=== PATIENT | female | born 1940 | race Hispanic/Latino ===

== ENCOUNTER → 2023-08-26 15:36 | Outpatient (REF) | payer OTHER, SELFPAY | LOC: WDC 15:36 | PROVIDERS: ATTENDING PHYSICIAN Internal Medicine Hematology & Oncology; FAMILY PHYSICIAN Nurse Practitioner Family | DX: Z12.31 Encounter for screening mammogram for malignant neoplasm of breast (principal); C50.311 Malignant neoplasm of lower-inner quadrant of right female breast | CPT/HCPCS: 77063; 77067 ==

== ENCOUNTER → 2023-12-03 16:21 | Outpatient (REF) | payer OTHER, SELFPAY | LOC: RAD 16:21 | PROVIDERS: ATTENDING PHYSICIAN Internal Medicine Endocrinology, Diabetes & Metabolism; FAMILY PHYSICIAN Nurse Practitioner Family | DX: E04.2 Nontoxic multinodular goiter (principal) | CPT/HCPCS: 76536 ==

== ENCOUNTER 2023-12-05 07:09 | Outpatient (RCR) | payer OTHER, SELFPAY | END 2023-12-05 23:59 | disposition home or self-care (01) | LOC: RPT 07:09 | PROVIDERS: ATTENDING PHYSICIAN Nurse Practitioner Adult Health; FAMILY PHYSICIAN Nurse Practitioner Family | DX: F03.B0 Unspecified dementia, moderate, without behavioral disturbance, psychotic disturbance, mood disturbance, and anxiety (principal); Z73.6 Limitation of activities due to disability; R26.2 Difficulty in walking, not elsewhere classified; R53.83 Other fatigue | CPT/HCPCS: 97163; 97530 ==

== ENCOUNTER 2024-01-07 14:59 | Outpatient (RCR) | payer OTHER, SELFPAY | END 2024-01-07 23:59 | disposition home or self-care (01) | LOC: RPT 14:59 | PROVIDERS: ATTENDING PHYSICIAN Nurse Practitioner Adult Health; FAMILY PHYSICIAN Nurse Practitioner Family | DX: F03.B0 Unspecified dementia, moderate, without behavioral disturbance, psychotic disturbance, mood disturbance, and anxiety (principal); Z73.6 Limitation of activities due to disability; R26.2 Difficulty in walking, not elsewhere classified; R26.89 Other abnormalities of gait and mobility | CPT/HCPCS: 97110; 97112; 97116; 97530 ==

== ENCOUNTER 2024-02-07 13:08 | Outpatient (RCR) | payer OTHER, SELFPAY | END 2024-02-07 23:59 | disposition home or self-care (01) | LOC: RPT 13:08 | PROVIDERS: ATTENDING PHYSICIAN Nurse Practitioner Adult Health; FAMILY PHYSICIAN Nurse Practitioner Family | DX: F03.B0 Unspecified dementia, moderate, without behavioral disturbance, psychotic disturbance, mood disturbance, and anxiety (principal); Z73.6 Limitation of activities due to disability; R26.2 Difficulty in walking, not elsewhere classified; R53.83 Other fatigue | CPT/HCPCS: 97110; 97112; 97116; 97530 ==

== ENCOUNTER 2024-02-28 12:15 | Outpatient (RCR) | payer OTHER, SELFPAY | END 2024-02-28 23:59 | disposition home or self-care (01) | LOC: RPT 12:15 | PROVIDERS: ATTENDING PHYSICIAN Nurse Practitioner Adult Health; FAMILY PHYSICIAN Nurse Practitioner Family | DX: F03.B0 Unspecified dementia, moderate, without behavioral disturbance, psychotic disturbance, mood disturbance, and anxiety (principal); Z73.6 Limitation of activities due to disability; R26.2 Difficulty in walking, not elsewhere classified; R53.83 Other fatigue | CPT/HCPCS: 97110; 97112; 97116; 97530 ==

== ENCOUNTER → 2024-03-26 14:19 | Outpatient (REF) | payer OTHER, SELFPAY | LOC: RAD 14:19 | PROVIDERS: ATTENDING PHYSICIAN Nurse Practitioner Adult Health; FAMILY PHYSICIAN Nurse Practitioner Family; OTHER PHYSICIAN Internal Medicine Hematology & Oncology | DX: M81.0 Age-related osteoporosis without current pathological fracture (principal) | CPT/HCPCS: 77080 ==

== ENCOUNTER 2024-04-06 15:11 | Outpatient (RCR) | payer OTHER, SELFPAY | END 2024-04-06 23:59 | disposition home or self-care (01) | LOC: RPT 15:11 | PROVIDERS: ATTENDING PHYSICIAN Nurse Practitioner Adult Health; FAMILY PHYSICIAN Nurse Practitioner Family | DX: F03.B0 Unspecified dementia, moderate, without behavioral disturbance, psychotic disturbance, mood disturbance, and anxiety (principal); Z73.6 Limitation of activities due to disability; R26.2 Difficulty in walking, not elsewhere classified; R53.83 Other fatigue | CPT/HCPCS: 97110; 97112; 97162; 97163; 97530 ==

== ENCOUNTER 2024-04-13 14:17 | Outpatient (RCR) | payer OTHER, SELFPAY | END 2024-04-13 23:59 | disposition home or self-care (01) | LOC: RPT 14:17 | PROVIDERS: ATTENDING PHYSICIAN Nurse Practitioner Adult Health; FAMILY PHYSICIAN Nurse Practitioner Family | DX: F03.B0 Unspecified dementia, moderate, without behavioral disturbance, psychotic disturbance, mood disturbance, and anxiety (principal); Z73.6 Limitation of activities due to disability; R26.2 Difficulty in walking, not elsewhere classified; R53.83 Other fatigue; Z85.3 Personal history of malignant neoplasm of breast | CPT/HCPCS: 97110; 97112; 97116 ==

== ENCOUNTER 2024-06-03 16:03 | Outpatient (RCR) | payer OTHER, SELFPAY | END 2024-06-03 23:59 | disposition home or self-care (01) | LOC: RPT 16:03 | PROVIDERS: ATTENDING PHYSICIAN Nurse Practitioner Adult Health; FAMILY PHYSICIAN Nurse Practitioner Family | DX: F03.B0 Unspecified dementia, moderate, without behavioral disturbance, psychotic disturbance, mood disturbance, and anxiety (principal); Z73.6 Limitation of activities due to disability; R26.2 Difficulty in walking, not elsewhere classified; R53.83 Other fatigue; M62.81 Muscle weakness (generalized); Z85.3 Personal history of malignant neoplasm of breast | CPT/HCPCS: 97110; 97112; 97116; 97530 ==

== ENCOUNTER 2024-06-30 15:09 | Outpatient (RCR) | payer OTHER, SELFPAY | END 2024-06-30 23:59 | disposition home or self-care (01) | LOC: RPT 15:09 | PROVIDERS: ATTENDING PHYSICIAN Nurse Practitioner Adult Health; FAMILY PHYSICIAN Nurse Practitioner Family | DX: F03.B0 Unspecified dementia, moderate, without behavioral disturbance, psychotic disturbance, mood disturbance, and anxiety (principal); R26.2 Difficulty in walking, not elsewhere classified (principal); Z73.6 Limitation of activities due to disability; M62.81 Muscle weakness (generalized); R53.83 Other fatigue; Z85.3 Personal history of malignant neoplasm of breast | CPT/HCPCS: 97110; 97112; 97116; 97530 ==

== ENCOUNTER 2024-08-05 16:33 | Outpatient (RCR) | payer OTHER, SELFPAY | END 2024-08-05 23:59 | disposition home or self-care (01) | LOC: RPT 16:33 | PROVIDERS: ATTENDING PHYSICIAN Nurse Practitioner Adult Health; FAMILY PHYSICIAN Nurse Practitioner Family | DX: F03.B0 Unspecified dementia, moderate, without behavioral disturbance, psychotic disturbance, mood disturbance, and anxiety (principal); R26.2 Difficulty in walking, not elsewhere classified (principal); Z73.6 Limitation of activities due to disability; R53.83 Other fatigue; M62.81 Muscle weakness (generalized); Z85.3 Personal history of malignant neoplasm of breast | CPT/HCPCS: 97110; 97112; 97116; 97530 ==

== ENCOUNTER → 2024-08-26 15:47 | Outpatient (REF) | payer OTHER, SELFPAY | LOC: WDC 15:47 | PROVIDERS: ATTENDING PHYSICIAN Internal Medicine Hematology & Oncology; FAMILY PHYSICIAN Nurse Practitioner Family | DX: Z12.31 Encounter for screening mammogram for malignant neoplasm of breast (principal) | CPT/HCPCS: 77063; 77067 ==

== ENCOUNTER 2024-09-07 15:19 | Outpatient (RCR) | payer OTHER, SELFPAY | END 2024-09-07 23:59 | disposition home or self-care (01) | LOC: RST 15:19 | PROVIDERS: ATTENDING PHYSICIAN Nurse Practitioner Adult Health; FAMILY PHYSICIAN Nurse Practitioner Family | DX: R26.2 Difficulty in walking, not elsewhere classified (principal); Z73.6 Limitation of activities due to disability; F03.B0 Unspecified dementia, moderate, without behavioral disturbance, psychotic disturbance, mood disturbance, and anxiety; R53.83 Other fatigue; M62.81 Muscle weakness (generalized); G31.84 Mild cognitive impairment of uncertain or unknown etiology; R41.841 Cognitive communication deficit; Z85.3 Personal history of malignant neoplasm of breast | CPT/HCPCS: 96125; 97110; 97112; 97116; 97129; 97130; 97530 ==

== ENCOUNTER 2024-10-07 11:45 | Outpatient (RCR) | payer OTHER, SELFPAY | END 2024-10-07 23:59 | disposition home or self-care (01) | LOC: RST 11:45 | PROVIDERS: ATTENDING PHYSICIAN Nurse Practitioner Adult Health; FAMILY PHYSICIAN Nurse Practitioner Family | DX: R26.2 Difficulty in walking, not elsewhere classified (principal); Z73.6 Limitation of activities due to disability; F03.B0 Unspecified dementia, moderate, without behavioral disturbance, psychotic disturbance, mood disturbance, and anxiety; R53.83 Other fatigue; M62.81 Muscle weakness (generalized); G31.84 Mild cognitive impairment of uncertain or unknown etiology; R41.841 Cognitive communication deficit; Z85.3 Personal history of malignant neoplasm of breast | CPT/HCPCS: 97110; 97112; 97116; 97129; 97130; 97530 ==

== ENCOUNTER 2024-10-20 13:37 | Outpatient (RCR) | payer OTHER, SELFPAY | END 2024-10-20 23:59 | disposition home or self-care (01) | LOC: RST 13:37 | PROVIDERS: ATTENDING PHYSICIAN Nurse Practitioner Adult Health; FAMILY PHYSICIAN Nurse Practitioner Family | DX: R26.2 Difficulty in walking, not elsewhere classified (principal); Z73.6 Limitation of activities due to disability; F03.B0 Unspecified dementia, moderate, without behavioral disturbance, psychotic disturbance, mood disturbance, and anxiety; R53.83 Other fatigue; M62.81 Muscle weakness (generalized); G31.84 Mild cognitive impairment of uncertain or unknown etiology; R41.841 Cognitive communication deficit; Z85.3 Personal history of malignant neoplasm of breast | CPT/HCPCS: 97110; 97112; 97129; 97130 ==

== ENCOUNTER 2024-10-30 16:57 | Inpatient (IN) | payer OTHER, SELFPAY ==
[2024-10-30] VITALS (18 sets, daily range): BP systolic 88–123; BP diastolic 44–82; BMI 24.3
[2024-10-30 15:08] LABS: Hematocrit 37.5 % (37.0-47.0); Hemoglobin 12.4 g/dL (12.0-16.0); Mean Corp Hgb Conc. 33.1 g/dL (33.0-37.0); Mean Corpuscular Volume 95.7 fL (81.0-99.0); Nucleated Red Blood Cells % 0 %; Platelet Count 179 10^3/uL (130-400); Red Cell Dist. Width 13.6 % (11.5-14.5)
--- NOTE | 2024-10-30 15:08 | ED.GENMED ---
History of Present Illness
General
Chief Complaint: Chest Pain
Source: patient
Exam Limitations: none
Time Seen by Provider: 10/30/24 15:00
History of Present Illness
History of Present Illness:
See MDM
Past History
Past History
ED Past Medical History: Cancer and Hypercholesterolemia
ED Past Surgical History: None
Social History
Tobacco: Non-smoker
Alcohol: None
Phy Exam
Physical Exam
Physical Exam:
See MDM
Scores
Heart Score for Chest Pain Patients
STEMI patient?: No
History: Slightly or Non-Suspicious
ECG: Nonspecific Repolarization
Age: >/= 65 years
Risk Factors: 1 or 2 Risk Factors
Troponin: </= Normal Limit
Heart Score for Chest Pain Patients: 4
Heart Score Risk: 20.3% MACE over next 6 weeks
Course
Orders/Labs/Results
Orders:
Orders
10/30/24 14:31
EKG [Electrocardiogram (*1)] Urgent
Reason for Study: Chest Pain
EKG- Treatment ONCE
10/30/24 Dinner
Regular
At Your Request: Full Participation
Does patient need a safe tray?: No
Complete Blood Count/With Diff Urgent
Comprehensive Metabolic Panel Urgent
Magnesium Urgent
TSH Reflex To Free T4 Urgent
Comment: MAG & TSH REFLEX ADDED ON BY FLOOR 3:05PM 10-30-24
Troponin I Urgent
10/30/24 15:07
Add On- LAB Urgent
Tests Added?: TSH reflex Free T4, Magnesium
0.9% Sodium Chloride 1000 ml [Nss] 1,000 ml IV BOLUS
Diltiazem 125 mg/125 ml Nss [Cardizem] 125 mg in 125 ml IV NOW
Initial dose in mg/hr, then titrate:: 5
Titrate to keep:: Heart rate 80-100 bpm
Titrate by mg/hr:: 5 mg/hr
Frequency of titrations (minutes):: 15
Maximum dose in mg/hr:: 15
Diltiazem HCl [Cardizem] 15 mg IV NOW STA
10/30/24 16:05
Diltiazem HCl [Cardizem] 20 mg IV NOW STA
10/30/24 16:34
Admit/Transfer Patient As Directed
Co-Sign Provider:
Level of Care: Inpatient admission
Assign to:: IVU
Physician / Group: garry
Diagnosis: afib rvr
Reason for Hospitalization: afib rvr
Expected length of stay greater than two midnights?: Yes
ELOS- Estimated Length of Stay in days: 2
I certify the patient meets the requirements for IP care: Yes
Code Status As Directed
Resuscitation Status: Full Code
PRN Pain Medication Management As Directed
May give lesser potent ordered pain med per pt: Yes
preference::
Protocol:: Medication orders for pain may be administered in a
manner that supports deferring to patient preference
when the pt is:
- Requesting an ordered lesser potent pain medication.
Least to most potent pain medications are defined
as: acetaminophen < NSAID < tramadol < opioids
(morphine, oxycodone, hydromorphone).
- Requesting a lesser dose of the same medication IF
ORDERED.
- Requesting a less intrusive route of administration
if both routes are prescribed by the provider (PO <
IV).
10/30/24 18:16
Echo 2D MMode Color/Doppler Routine
Reason for Study: afib rvr
VTE Contraindication Routine
VTE Mechanical Device Contraindication: Medical Contraindication
Pharmocologic Contraindication: Medical Contraindication
Activity As Directed
Activity Level: As Tolerated
Vital Signs As Directed
Frequency: Per unit guidelines
10/30/24 20:00
Apixaban [Eliquis] 2.5 mg PO BID
10/30/24 20:24
Troponin I Q6H
10/31/24 00:19
Troponin I Q6H
10/31/24 06:20
Complete Blood Count/With Diff IN AM
Comprehensive Metabolic Panel IN AM
Troponin I Q6H
Abnormal Lab Results
10/30/24
15:00
RBC 3.92 L 10^6/uL
(4.20-5.40)
MCH 31.6 H pg
(27.0-31.0)
MPV 10.5 H fL
(7.4-10.4)
Monocytes % 9.5 H %
(1.7-9.3)
BUN 20 H mg/dl
(7-17)
Glucose 121 H mg/dl
(70-99)
10/30/24 15:00
10/30/24 15:00
Vital Signs
Initial and Last Documented VS:
Initial Vital Signs
Temp Pulse Resp
98.0 F 191 16
10/30/24 14:41 10/30/24 14:41 10/30/24 14:41
Last Documented Vital Signs
Temp Pulse Resp BP Pulse Ox
97.9 F 58 18 132/55 100
10/31/24 15:38 10/31/24 15:39 10/31/24 15:38 10/31/24 15:39 10/31/24 15:38
MDM/Problems Addressed
Differential Diagnosis Includes:
Note:
CHIEF COMPLAINT(S)
Palpitations and rapid heart rate.
HISTORY OF PRESENT ILLNESS
The patient is an 84-year-old female presenting with symptoms consistent with atrial fibrillation, specifically experiencing palpitations and an elevated heart rate. Pt noted chest pain around 2 PM today. The patient has not experienced shortness
of breath or fever recently Pt denies any change in medications but family is concerned she is not drinking enough water. Currently, the goal is to reduce her heart rate and potentially convert her heart rhythm back to a normal sinus rhythm using
medication. She has never seen a caddymaster before.
PHYSICAL EXAM
General: Alert, no acute distress. Sitting in bed comfortably
Skin: Warm, dry.
Head: Normocephalic, atraumatic
Neck: Appears supple, trachea midline.
Eyes, Ears, Nose, Mouth, and Throat: Oral mucosa moist.
Cardiovascular: No signs of cyanosis. Tachycardic and irregular
Respiratory: Respirations are non-labored.
Abdomen: Non-distended
Musculoskeletal: No deformities. No leg edema
Neurological: No focal neurological deficit observed.
Psychiatric: Cooperative, appropriate mood and affect.
PROBLEM LIST
Acute:
- Atrial fibrillation with rapid ventricular response
PLAN
1. Administer blood pressure medication to lower the heart rate.
2. Initiate Cardizem (diltiazem) drip to aid in controlling heart rate and attempt rhythm conversion.
3. Conduct blood work to check for potential underlying causes such as thyroid abnormalities.
4. Depending on response to treatment, consider inpatient monitoring and cardiology consultation if symptoms persist and cannot be managed outpatient.
DIFFERENTIAL DIAGNOSIS
The Differential Diagnosis includes, in no particular order and is not limited to:
1. Atrial fibrillation with rapid ventricular response
2. Atrial flutter
3. Supraventricular tachycardia
4. Ventricular tachycardia
5. Myocardial infarction
6. Hyperthyroidism
7. Electrolyte imbalance
8. Pulmonary embolism
9. Anemia
10. Dehydration
My independent EKG interpretation is:
- Rhythm: Atrial fibrillation with rapid ventricular response
- Heart Rate: 191 beats per minute
- [place]: Normal axis
- ST Segment: No evidence of ST elevation
SUMMARY OF ENCOUNTER
The patient, an 84-year-old female, presented to the emergency department with palpitations and rapid heart rate. She has no prior history of atrial fibrillation or other heart issues. Upon evaluation, she was found to be in atrial fibrillation with
rapid ventricular response. Management in the emergency department included starting a diltiazem (Cardizem) drip to control the heart rate and attempt rhythm conversion.
DISPOSITION
Admit.
ASSESSMENT
The patient is experiencing atrial fibrillation with rapid ventricular response, and given the lack of resolution in the emergency department, she requires inpatient monitoring for better rate control and potential initiation of anticoagulation
therapy.
EMERGENCY TREATMENTS ADMINISTERED
Diltiazem drip initiated for heart rate control.
MANAGEMENT OF THE PATIENTS CARE WAS DISCUSSED WITH
Discussion with the hospice team regarding the patients need for admission and further management.
PLAN
Admit the patient for continued monitoring and management of atrial fibrillation. Plan to initiate anticoagulation therapy once rate control is achieved.
MEDICAL DECISION MAKING
-Complexity of Data Reviewed: Chronic conditions affecting care include the new onset atrial fibrillation with rapid ventricular response. Differential diagnoses include atrial fibrillation, atrial flutter, supraventricular tachycardia, ventricular
tachycardia, myocardial infarction, hyperthyroidism, electrolyte imbalance, pulmonary embolism, anemia, and dehydration.
-Data:
Category 1:
My independent interpretation of EKG is atrial fibrillation with rapid ventricular response, heart rate at 191 beats per minute, normal axis, no ST elevation.
Category 3: Discussion of management with the hospice team, focusing on the plan for admission and further rate control management.
DIAGNOSIS
1. Atrial Fibrillation with Rapid Ventricular Response (ICD-10: I48.0)
*Pulse Oximetry
Oxygen Mode of Delivery: Room air
Patient hypoxic: no
*Critical Care Note
Total Time (30-74mins, 75-104mins- exclusive of procedures): 33 min
comment:
The high probability of a clinically significant, sudden or life threatening deterioration of the cardiovascular system(s) required my full and direct attention, intervention and personal management. The aggregate critical care time was 33 minutes.
This time is in addition to time spent performing reported procedures but includes the following:
[x] Data Review and interpretation
[x] Patient assessment and monitoring of vital signs
[x] Documentation
[x] Medication orders and management
ED Attending Note
-
Portions of this chart may have been created with voice recognition software.� Occasional wrong word or��sound alike� substitutions may have occurred due to the inherent limitations of voice recognition software.
Discharge Plan
Departure
Patient Disposition: Admit
Date of Disposition: 10/30/24
Time of Disposition: 16:15
Admit to: Telemetry
Presentation/result/management discussed w/ accepting MD/DO: Hospitalist
Discharge Problem:
Atrial fibrillation, new onset
Interventions
Interventions:
*Risk Screen - Suicide Last Done: 10/30/24 18:37
*General Assessment Last Done: 10/30/24 14:51
*Neglect/Abuse Screening Last Done: 10/30/24 14:51
*ED- Fall Risk Assessment Last Done: 10/30/24 14:51
*ED COVID-19 Vaccine History Last Done: 10/30/24 18:37
*Nursing Disposition Last Done: 10/30/24 18:22
ED- Cardiac Assessment Last Done: 10/30/24 14:51
Discharge Date and Time
Discharge Date/Time: 10/30/24 18:23
[2024-10-30] MEDS: CARDIZEM 15 MG IV (15:12)
[2024-10-30] MEDS: CARDIZEM 125 IV (15:13)
[2024-10-30] MEDS: NSS 1000 IV (15:14)
[2024-10-30 15:36] LABS: Troponin I < 0.012 ng/ml
[2024-10-30 15:50] LABS: ALT (SGPT) 19 U/L (0-35); AST (SGOT) 26 U/L (14-36); Albumin 4.0 g/dl (3.5-5.0); Alkaline Phosphatase 86 U/L (38-126); Blood Urea Nitrogen 20 mg/dl (7-17); Calcium 10.2 mg/dl (8.4-10.2); Carbon Dioxide 26 mmol/L (22-30); Chloride 105 mmol/L (98-107); Estimated Creatinine Clearance 35 ml/min; Glucose 121 mg/dl (70-99); Magnesium 2.1 mg/dl (1.6-2.3); Potassium 4.6 mmol/L (3.5-5.1); Sodium 137 mmol/L (135-145); Total Protein 6.6 g/dl (6.3-8.2); eGFR > 60.00
[2024-10-30] MEDS: CARDIZEM 20 MG IV (16:27)
--- NOTE | 2024-10-30 16:37 | HPS.HSE ---
Family Physician
-
Family Physician: LANEY Arambula
Chief Complaint
-
chest pain
History of Present Illness
84-year-old female past medical history of breast cancer status postmastectomy and chemotherapy previously, hypercholesteremia, glaucoma, prior DVT, dementia, posterior cortical atrophy, osteoporosis, presenting with abrupt onset of chest pain
starting today. Denies any shortness of breath. She always feels some degree of dizziness secondary to posterior cortical atrophy. No syncope. No swelling in the legs. No prior history of cardiac problems.
No prior history of major bleeding or falls.
No recent fever, cough, nausea vomiting or diarrhea or urinary symptoms.
She is a former smoker. Denies alcohol or drugs.
Her father had bypass. Grandmother had heart disease.
Medical History
Past Medical History
Past Medical History: Reports Other (breast cancer status postmastectomy and chemotherapy previously, hypercholesteremia, glaucoma, prior DVT, dementia, posterior cortical atrophy, osteoporosis)
Past Surgical History: Reports Other (mastectomy )
Social History
Tobacco: Former Smoker
Alcohol: None
Drug: None
Family History
Family History: Not pertinent
Allergies / Home Medications
Allergies reflects when Allergies were last updated in [facility].
Home Medications with original date entered in [facility]
Allergy/Medication List:
Allergies
Allergy/AdvReac Type Severity Reaction Status Date / Time
No Known Allergies Allergy Verified 10/30/24 14:37
Home Medications
atorvastatin 10 mg tablet 20 mg PO QPM 03/06/21
letrozole 2.5 mg tablet 2.5 mg PO DAILY 03/06/21
memantine 10 mg tablet 10 mg PO HS 03/06/21
multivitamin 1 ea PO DAILY 03/06/21
pyridoxine (vitamin B6) 25 mg tablet (Vitamin B-6) 25 mg PO DAILY 03/06/21
alendronate 70 mg tablet 70 mg PO QWEEK 12/19/21
netarsudil 0.02 %-latanoprost 0.005 % eye drops (Rocklatan) 1 drp ophthalmic (eye) DAILY 12/20/21
Probiotic 08/31/22
acetaminophen 500 mg capsule 500 mg PO DAILY 08/31/22
memantine 10 mg tablet 10 mg PO QPM 08/31/22
Review of Systems
-
History Source: Patient
A 12 point ROS was completed and negative except as noted: Yes
Constitutional: Reports No Symptoms
EENT: Reports No Symptoms
Respiratory: Reports No Symptoms
Cardiac: Reports See HPI
Abdomen/GI: Reports No Symptoms
: Reports No Symptoms
Musculoskeletal: Reports No Symptoms
Skin: Reports No Symptoms
Neurological: Reports No Symptoms
Endocrine: Reports No Symptoms
Hematologic/Lymphatic: Reports No Symptoms
Psych: Reports No Symptoms
Physical Exam
Vital Signs
Vital Signs
Temp Pulse Resp BP Pulse Ox
98.0 F 138 18 107/70 98
10/30/24 14:41 10/30/24 16:27 10/30/24 16:15 10/30/24 16:27 10/30/24 16:15
Physical Exam
General: Well Developed, Well Nourished and No Apparent Distress
HEENT: NormoCephalic, Moist mucous membranes and Atraumatic
Respiratory: Clear
Cardiac: S1/S2, Irregular Rhythm and Tachycardia; No Murmur or Rub
GI: Soft, Non Tender, Non Distended and Normal Bowel Sounds; No Organomegaly
Rectal: Deferred by Provider
Musculoskeletal: No Clubbing, No Cyanosis and No Edema
Skin: No Rash
Neuro: Nonfocal/grossly intact
Laboratory Results
-
10/30/24 15:00
10/30/24 15:00
Laboratory Results
Total Bilirubin 0.6 mg/dl (0.2-1.3) 10/30/24 15:00
AST 26 U/L (14-36) 10/30/24 15:00
ALT 19 U/L (0-35) 10/30/24 15:00
Alkaline Phosphatase 86 U/L (38-126) 10/30/24 15:00
Troponin I < 0.012 ng/ml 10/30/24 15:00
Data Reviewed
-
Lab Data: Labs Reviewed by me
Old Records: Reviewed
Impression/Plan
-
IMPRESSION:
PLAN:
# New onset atrial fibrillation with RVR
-[id number]-TALy score of 5 due to female, age and prior DVT
-EKG shows atrial fibrillation with heart rate 190s
-Troponin negative
- 1 L IV fluids given
-Cardizem drip
- TSH pending
-Trend troponin
- Check echo
- Cardiology consulted
Breast cancer
- Continue letrozole
Hypercholesteremia
- Continue statin
Glaucoma
- Continue eyedrops
Dementia
- Continue memantine
Posterior cortical atrophy
Osteoporosis
- Continue alendronate
History of prior DVT
Full code
DVT prophylaxis-Eliquis
Regular diet
--- NOTE | 2024-10-30 17:40 | EDRN ---
Attempted to call report to IVU but nurse was in a room with another patient, extension provided for call back
--- NOTE | 2024-10-30 19:16 | PTCARENOTE ---
Addendum entered by Go Echols RN 10/30/24 19:16:
recieved PT admitted w/ new afib; afib broke on route to IVU; PT in NSR upon arrival to room VSS; RA 98% clear throughout; GI and WNL; PIV wnl; see worklist for detailed assessment
Original Note:
recieved PT admitted w/ new afiv
[2024-10-30] MEDS: NAMENDA 10 MG PO (20:35)
[2024-10-30] MEDS: ELIQUIS 2.5 MG PO (20:35)
[2024-10-30] MEDS: OCUVITE SOFTGEL 1 CAP PO (20:35)
[2024-10-30] MEDS: LIPITOR 20 MG PO (20:35)
[2024-10-30 21:25] LABS: Troponin I 0.068 ng/ml
--- NOTE | 2024-10-30 21:39 | PTCARENOTE ---
Received patient at change of shift. SB on the monitor, HR in the 50s. Cardizem running at 5. CATCHER HELPER Manuel Pro notified of low HR, Cardizem stopped as per CATCHER HELPER, see documentation. No complaints from pt at this time, call chiang within reach.
[2024-10-30] MEDS: ARICEPT 10 MG PO (22:09)
[2024-10-31] VITALS (10 sets, daily range): BP systolic 118–144; BP diastolic 40–60; BMI 24.3
[2024-10-31 01:06] LABS: Troponin I 0.096 ng/ml
[2024-10-31 06:28] LABS: Hematocrit 33.9 % (37.0-47.0); Hemoglobin 11.5 g/dL (12.0-16.0); Mean Corp Hgb Conc. 33.9 g/dL (33.0-37.0); Mean Corpuscular Volume 93.1 fL (81.0-99.0); Nucleated Red Blood Cells % 0 %; Platelet Count 170 10^3/uL (130-400); Red Cell Dist. Width 13.6 % (11.5-14.5)
[2024-10-31 06:50] LABS: ALT (SGPT) 18 U/L (0-35); AST (SGOT) 26 U/L (14-36); Albumin 3.5 g/dl (3.5-5.0); Alkaline Phosphatase 71 U/L (38-126); Blood Urea Nitrogen 17 mg/dl (7-17); Calcium 9.8 mg/dl (8.4-10.2); Carbon Dioxide 25 mmol/L (22-30); Chloride 110 mmol/L (98-107); Estimated Creatinine Clearance 40 ml/min; Glucose 80 mg/dl (70-99); Potassium 4.3 mmol/L (3.5-5.1); Sodium 139 mmol/L (135-145); Total Protein 5.9 g/dl (6.3-8.2); eGFR > 60.00
[2024-10-31 07:02] LABS: Troponin I 0.077 ng/ml
--- NOTE | 2024-10-31 08:13 | W.PN.HOSP.TC ---
Today's Communication/Plan
-
See PN
Assessment / Plan
Assessment / Plan
84yo F with HLD, osteoporosis, dementia brought in with chest pain, found Afib with RVR, converted to SR on Cardizem and remained bradycardic, but asymptomatic. Review of respiratory, GI, Urogenital systems - no symptoms reported. No fever or
leukocytosis
A/P:
#NEw onset Afib with RVR
#Asymptomatic adeola
#Elevated troponin, most likely Non-ischemic myocardial injury 2/2 tachycardia
troponin started to decrease after convertion to SR
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
Echo
telemetry
avoid AV simin blocking agents
Stop Aricept
Cardio consult
STarted on Eliquis on admission
TSH WNL
#Mild anemia
follow up with PCP upon d/c
#Dementia, unspecified
Patient cooperative, oriented to herself and place, but not to time, severe impairment of short term memory
#Osteoporosis
#HLD
cont home meds
DVT ppx on Eliquis
Full code
I have spent at leat 51min reviewing chart, test results, communication with consultants, family and providing direct patient care
Anticipated Discharge: 24 - 48 hours
Subjective/Interval History
-
Date of Service: October 31, 2024
Objective Data
-
Labs:
Laboratory Results
10/31/24
06:20
WBC 5.8
Hgb 11.5 L
Hct 33.9 L
Plt Count 170
Sodium 139
Potassium 4.3
Chloride 110 H
Carbon Dioxide 25
BUN 17
Creatinine 0.7
Glucose 80
Calcium 9.8
Total Bilirubin 0.6
AST 26
ALT 18
Alkaline Phosphatase 71
Vital Signs:
Vital Signs
Temp Pulse Resp BP Pulse Ox
97.9 F 54 16 139/57 99
10/31/24 07:18 10/31/24 07:18 10/31/24 07:18 10/31/24 07:18 10/31/24 07:18
I&O
10/30/24 10/31/24 11/01/24
06:59 06:59 06:59
Output Total 500 / 500
Balance -500 / -500
Review of Systems
-
Unable to obtain full review of systems at this time due to: Dementia
History Source: Patient
All other systems: Reviewed and negative
Physical Exam
-
General: No Apparent Distress
HEENT: Normocephalic
Respiratory: Clear to Auscultation
GI: Soft, Nontender and Nondistended
Genito-urinary: No Costovertebral Tender
Skin: Warm; Negative Dry
Neuro: Awake, Alert and Oriented (not to time)
Psych: Calm and Apparent Dementia
[2024-10-31] MEDS: ELIQUIS 2.5 MG PO ×2 (08:50→19:59)
[2024-10-31] MEDS: VITAMIN B-12 1000 MCG PO (08:50)
[2024-10-31] MEDS: OCUVITE SOFTGEL 1 CAP PO ×2 (08:51→19:59)
[2024-10-31] MEDS: VITAMIN D3 (cholecalciferol) 25 MCG PO (08:51)
[2024-10-31] MEDS: FLUSH (NSS) 1 FLUSH IV (08:51)
[2024-10-31] MEDS: THERAGRAN 1 TABLET PO (08:51)
[2024-10-31] MEDS: NAMENDA 10 MG PO ×2 (08:51→19:59)
[2024-10-31] MEDS: FEMARA 2.5 MG PO (08:51)
--- NOTE | 2024-10-31 09:09 | CON.CAR ---
Consultation
Consultation Request
Date/Time Consultation Requested: 10/31/2024 at 7:09 AM
Date/Time Consultation Performed: 10/31/2024 at 8:45 AM
Requesting Provider: Biju Hodge MD
Performing Provider: Rahul Gutierrez MD
Reason for Consultation: Chest pain, atrial fibrillation
Medical History
-
Chief Complaint: Chest pain
History of Present Illness:
84-year-old with hyperlipidemia and dementia who presents with chest pain found to be in A-fib with RVR. She was started on a diltiazem drip and converted to normal sinus rhythm. Overnight heart rates were in the 40s�50s. She is currently
asymptomatic. Chest pain has completely resolved. She reports that she has never seen a color tester before or been told she has any kind of heart problems.
Past Medical History
Past Medical History: Other (as above)
Social History
Living: With Family
Family History
Family History: Reviewed & Not Pertinent
Allergies / Home Medications
Allergy/AdvReac Type Severity Reaction Status Date / Time
No Known Allergies Allergy Verified 10/30/24 14:37
�Medication �Instructions �Recorded �Confirmed �Type
letrozole 2.5 mg tablet 2.5 mg PO DAILY 03/06/21 10/30/24 History
alendronate 70 mg tablet 70 mg PO WE 12/19/21 10/30/24 History
netarsudil 0.02 %-latanoprost 1 drp BOTH EYES HS 12/20/21 10/30/24 History
0.005 % eye drops (Rocklatan)
memantine 10 mg tablet 10 mg PO BID 08/31/22 10/30/24 History
atorvastatin 20 mg tablet (Lipitor) 20 mg PO QPM 10/30/24 10/30/24 History
cholecalciferol (vitamin D3) 25 25 mcg PO DAILY 10/30/24 10/30/24 History
mcg (1,000 unit) tablet (Vitamin
D3)
cyanocobalamin (vitamin B-12) 1,000 mcg PO DAILY 10/30/24 10/30/24 History
1,000 mcg tablet
donepezil 10 mg tablet 10 mg PO HS 10/30/24 10/30/24 History
therapeutic multivitamin 1 tab PO DAILY 10/30/24 10/30/24 History
vit C 250 mg-vit E 90 mg-zinc 40 1 tab PO BID 10/30/24 10/30/24 History
mg-copper 1 [id number]
capsule (PreserVision AREDS-2)
Review of Systems
-
All other systems: Negative unless noted
Physical Exam
Vital Signs
Temp Pulse Resp BP Pulse Ox
97.9 F 57 16 139/57 99
10/31/24 07:18 10/31/24 08:00 10/31/24 07:18 10/31/24 07:19 10/31/24 07:18
Lab Results
10/31/24 06:20
10/31/24 06:20
Troponin I 0.077 ng/ml H* 10/31/24 06:20
Physical Exam
General: Well Developed and Well Nourished
Respiratory: Clear
Cardiac: S1/S2 and Regular Rhythm; Negative Murmur or Peripheral Edema
Impression / Plan
-
84-year-old with hyperlipidemia and dementia who presents with chest pain found to be in A-fib with RVR. She was started on a diltiazem drip and converted to normal sinus rhythm.
Paroxysmal atrial fibrillation
-As far as I can tell, this is a new diagnosis for her. On admission she had rapid ventricular rates with heart rates up to the 190s. She converted to NSR with diltiazem drip. TSH nl.
-Start p.o. diltiazem 30mg QID. We need to watch heart rates closely.
-If she develops symptomatic bradycardia, she may need PPM.
-Continue Eliquis 2.5 mg twice daily (age, weight <60 kg)
-TTE on Saturday if she is still here or can defer to outpatient
Abnormal troponin
-Suspect due to nonischemic myocardial injury in the setting of A-fib with RVR
-Peaked at 0.096 and now downtrending
-Okay to stop trending
Data Reviewed
-
EKG: Tracing Personally Visualized and interpreted, Report Reviewed by me, Discussed with Physician and Discussed with Patient
Labs: Labs Reviewed by me, Discussed with Physician and Discussed with Patient
[2024-10-31] MEDS: CARDIZEM 30 MG PO ×3 (10:30→19:11)
--- NOTE | 2024-10-31 12:25 | PTCARENOTE ---
The patient is aaox2, she is forgetful of time. SB/NSR is noted on the monitor with HR's fluctuating between 50s-70s. She has no complaints of pain, discomfort, or SOB. While getting her OOB this morning, she was a 'little dizzy.' Her daughter
states that that is her baseline at home. I discontinued the Purewick at the start of my shift. The patient does know when she has to urinate and has been ambulating to the bathroom. Bed and chair alarms are in place. She has made no attempts to get
OOB by herself. I updated her daughter with the patient's plan of care.
[2024-10-31] MEDS: LIPITOR 20 MG PO (19:11)
--- NOTE | 2024-10-31 20:19 | PTCARENOTE ---
Pt rec'd at change of shift resting. Pt instructed on how to call nursing when she needs to void. Pt found approx 5 mins later attempting to get oob on her own, bed alarm activated. Sinus on telemetry.
[2024-11-01] VITALS (9 sets, daily range): BP systolic 100–137; BP diastolic 47–81
[2024-11-01] MEDS: NON-FORMULARY ITEM 1 DROP BOTH EYES ×2 (00:10→22:37)
[2024-11-01] MEDS: CARDIZEM PO ×2 (00:11→00:21)
--- NOTE | 2024-11-01 03:44 | PTCARENOTE ---
HS Cardizem dose held for ht rates mid 40's sinus.
[2024-11-01] MEDS: VITAMIN B-12 1000 MCG PO (08:21)
[2024-11-01] MEDS: CARDIZEM 30 MG PO (08:21)
[2024-11-01] MEDS: FEMARA 2.5 MG PO (08:21)
[2024-11-01] MEDS: OCUVITE SOFTGEL 1 CAP PO ×2 (08:21→19:21)
[2024-11-01] MEDS: FLUSH (NSS) 1 FLUSH IV (08:21)
[2024-11-01] MEDS: ELIQUIS 2.5 MG PO ×2 (08:21→19:21)
[2024-11-01] MEDS: NAMENDA 10 MG PO ×2 (08:21→19:21)
[2024-11-01] MEDS: VITAMIN D3 (cholecalciferol) 25 MCG PO (08:21)
[2024-11-01] MEDS: THERAGRAN 1 TABLET PO (08:21)
--- NOTE | 2024-11-01 12:46 | W.PN.HOSP.TC ---
Today's Communication/Plan
-
pending PPM on 11/03/24
Assessment / Plan
Assessment / Plan
84yo F with HLD, osteoporosis, dementia brought in with chest pain, found Afib with RVR, converted to SR on Cardizem and remained bradycardic, but asymptomatic. Review of respiratory, GI, Urogenital systems - no symptoms reported. No fever or
leukocytosis
A/P:
#New onset Afib with RVR
#Asymptomatic adeola
#Elevated troponin, most likely Non-ischemic myocardial injury 2/2 tachycardia
troponin started to decrease after conversion to SR
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
Echo pending
telemetry
Stop Aricept until PPm placed
Cardio consult: might need PPM vs outpatient monitoring for recurrence - family to decide
Started on Eliquis on admission
TSH WNL
#Mild anemia
follow up with PCP upon d/c
#Dementia, unspecified
Patient cooperative, oriented to herself and place, but not to time, severe impairment of short term memory
#Osteoporosis
#HLD
cont home meds
DVT ppx on Eliquis
Full code
I have spent at leat 51min reviewing chart, test results, communication with consultants, family and providing direct patient care
Anticipated Discharge: > 48 hours
Subjective/Interval History
-
Date of Service: November 01, 2024
Objective Data
-
Vital Signs:
Vital Signs
Temp Pulse Resp BP Pulse Ox
98.2 F 57 18 106/47 98
11/01/24 11:40 11/01/24 11:40 11/01/24 11:40 11/01/24 11:40 11/01/24 11:40
I&O
10/31/24 11/01/24 11/02/24
06:59 06:59 06:59
Intake Total 480 / 480 360 / 360
Output Total 500 / 500
Balance -500 / -500 480 / 480 360 / 360
Review of Systems
-
History Source: Patient
All other systems: Reviewed and negative
Physical Exam
-
General: No Apparent Distress
HEENT: Normocephalic
Cardiac: Regular Rhythm
Musculoskeletal: No Clubbing, No Cyanosis and No Edema
Neuro: Awake, Alert, Oriented and AO x 3
Psych: Calm
--- NOTE | 2024-11-01 12:50 | W.PN.CD ---
Today's Communication / Plan
-
Stop diltiazem. I do not think she will be able to tolerate any AV simin blocking agents due to symptomatic bradycardia.
PPM on Saturday
Echo tomorrow
Impression / Plan
-
84-year-old with hyperlipidemia and dementia who presents with chest pain found to be in A-fib with RVR. She was started on a diltiazem drip and converted to normal sinus rhythm.
Paroxysmal atrial fibrillation
-As far as I can tell, this is a new diagnosis for her. On admission she had rapid ventricular rates with heart rates up to the 190s. She converted to NSR with diltiazem drip. TSH nl.
-Tried low-dose diltiazem but she was unable to tolerate this due to symptomatic bradycardia. She even had symptomatic bradycardia with latanoprost eyedrops in the past.
-Plan for PPM on Saturday
-Continue Eliquis 2.5 mg twice daily (age, weight <60 kg)
-Follow-up echo tomorrow
Abnormal troponin
-Suspect due to nonischemic myocardial injury in the setting of A-fib with RVR
-Peaked at 0.096 and now downtrending
-Okay to stop trending
Subjective: Diltiazem had to be held yesterday for heart rate in the 40s. She was lightheaded with going to the bathroom. No recurrence of atrial fibrillation.
Physical Exam
Vital Signs/Labs
Vital Signs
Temp Pulse Resp BP Pulse Ox
98.2 F 57 18 106/47 98
11/01/24 11:40 11/01/24 11:40 11/01/24 11:40 11/01/24 11:40 11/01/24 11:40
10/31/24 11/01/24 11/02/24
06:59 06:59 06:59
Actual Weight 120 lb 5.958 oz
10/31/24 06:20
10/31/24 06:20
Magnesium 2.1 mg/dl (1.6-2.3) 10/30/24 15:00
LAB Results
10/30/24 10/30/24 10/31/24
15:00 20:24 00:19
Troponin I < 0.012 0.068 H* D 0.096 H* D
10/31/24 10/31/24
06:20 12:16
Troponin I 0.077 H* Cancelled
Physical Exam
Constitutional: No acute distress and Comfortable
Cardiovascular: Rhythm & rate is regular, Pedal edema is absent, S1S2 is normal and Murmur/rub/gallop absent
Respiratory: Respiratory effort normal and Lungs clear to auscul.
Neuro/Psych: AO x 3
Data Reviewed
-
Date of Service: November 01, 2024
Medical Decision Making: Reviewed Test Results, Independent Historian Assessment, Test Interpretation and Review of Case with other Provider
EKG: Tracing Personally Visualized and interpreted
Labs: Labs Reviewed by me
[2024-11-01] MEDS: LIPITOR 20 MG PO (17:57)
--- NOTE | 2024-11-01 18:07 | PTCARENOTE ---
The patient remained stable throughout the shift and had no complaints. NSR/SB has been noted on the monitor with her heart rates as low as the high 40's and as high as the low 70s. The patient and her family agreed to having a pacemaker placed. I
notified Dr. Gutierrez of the family's wishes.
--- NOTE | 2024-11-01 23:18 | PTCARENOTE ---
Pt rec'd at change of shift awake,alert sitting in recliner chair. Assisted to bathroom to void. No c/o dizziness. back to bed at present resting. Sinus rhythm 80 at change of shift, currently in 50's. bed alarm activated.
[2024-11-02] VITALS (7 sets, daily range): BP systolic 115–159; BP diastolic 48–65
[2024-11-02 03:33] LABS: Hematocrit 33.8 % (37.0-47.0); Hemoglobin 11.8 g/dL (12.0-16.0); Mean Corp Hgb Conc. 34.9 g/dL (33.0-37.0); Mean Corpuscular Volume 92.3 fL (81.0-99.0); Nucleated Red Blood Cells % 0 %; Platelet Count 154 10^3/uL (130-400); Red Cell Dist. Width 13.6 % (11.5-14.5)
[2024-11-02 04:02] LABS: ALT (SGPT) 19 U/L (0-35); AST (SGOT) 24 U/L (14-36); Albumin 3.7 g/dl (3.5-5.0); Alkaline Phosphatase 76 U/L (38-126); Blood Urea Nitrogen 22 mg/dl (7-17); Calcium 9.7 mg/dl (8.4-10.2); Carbon Dioxide 27 mmol/L (22-30); Chloride 106 mmol/L (98-107); Estimated Creatinine Clearance 35 ml/min; Glucose 93 mg/dl (70-99); Potassium 4.7 mmol/L (3.5-5.1); Sodium 138 mmol/L (135-145); Total Protein 6.0 g/dl (6.3-8.2); eGFR > 60.00
--- NOTE | 2024-11-02 08:58 | W.PN.CD ---
Today's Communication / Plan
-
echo
NPO@MN for PPM
Impression / Plan
-
84-year-old with hyperlipidemia and dementia who presents with chest pain found to be in A-fib with RVR. She was started on a diltiazem drip and converted to normal sinus rhythm.
Paroxysmal atrial fibrillation
-As far as I can tell, this is a new diagnosis for her. On admission she had rapid ventricular rates with heart rates up to the 190s. She converted to NSR with diltiazem drip. TSH nl.
-Tried low-dose diltiazem but she was unable to tolerate this due to symptomatic bradycardia. She even had symptomatic bradycardia with latanoprost eyedrops in the past.
-Plan for PPM on Saturday
-Continue Eliquis 2.5 mg twice daily (age, weight <60 kg)
-Follow-up echo today
Abnormal troponin
-Suspect due to nonischemic myocardial injury in the setting of A-fib with RVR
-Peaked at 0.096 and now downtrending
-Okay to stop trending
Tele with SR, no bradycardia
Subjective: Diltiazem had to be held yesterday for heart rate in the 40s. She was lightheaded with going to the bathroom. No recurrence of atrial fibrillation. Does not recall prior discussions of pacemaker (she has severe dementia), but multiple
conversations over the weekend with daughter.
Physical Exam
Vital Signs/Labs
Vital Signs
Temp Pulse Resp BP Pulse Ox
36.5 C 65 20 137/63 100
11/02/24 07:40 11/02/24 03:10 11/02/24 07:40 11/01/24 22:35 11/02/24 07:40
11/02/24 03:22
11/02/24 03:22
Magnesium 2.1 mg/dl (1.6-2.3) 10/30/24 15:00
LAB Results
10/30/24 10/30/24 10/31/24
15:00 20:24 00:19
Troponin I < 0.012 0.068 H* D 0.096 H* D
10/31/24 10/31/24
06:20 12:16
Troponin I 0.077 H* Cancelled
Physical Exam
Constitutional: Comfortable
Cardiovascular: Rhythm & rate is regular
Respiratory: Respiratory effort normal
Neuro/Psych: AO x 3
Data Reviewed
-
Date of Service: November 02, 2024
Medical Decision Making: Reviewed Test Results
EKG: Tracing Personally Visualized and interpreted
Labs: Labs Reviewed by me
[2024-11-02] MEDS: THERAGRAN 1 TABLET PO (09:00)
[2024-11-02] MEDS: ELIQUIS 2.5 MG PO ×2 (09:02→20:03)
[2024-11-02] MEDS: OCUVITE SOFTGEL 1 CAP PO ×2 (09:03→20:03)
[2024-11-02] MEDS: VITAMIN D3 (cholecalciferol) 25 MCG PO (09:03)
[2024-11-02] MEDS: NAMENDA 10 MG PO ×2 (09:03→20:03)
[2024-11-02] MEDS: VITAMIN B-12 1000 MCG PO (09:03)
[2024-11-02] MEDS: FEMARA 2.5 MG PO (09:07)
--- NOTE | 2024-11-02 13:49 | CM ---
Reviewed cghart. Met with and Mrs. Cantu to review dscharge plans. They asked me to contact their daughter to review discharge plans. Telephone call to daughter, Neida to review discharge plans. Neida states prior to admission hre parents
reside in a first floor apartment without any steps to enter. She states she resides a mile away and she is in and out to assist them as needed. She stats prior to admission Mrs. Cantu ambulates with a single point cane ans sometimes in the
apartment independently. She has a walker and single point cane at home. Daughter states they has private caregivers the come in three times a week on Saturday, and Saturday for a couple of hours to assist in their care. Mrs. Cantu was
going to outpatient therapy for physical and speech therapy twice a week. She has never needed VNA Services. We reviewed VNA Services and she is agreeable to VNA Services. Sent referral to [facility] She has a prescription plan and
uses [facility]. Medical work-up in progress. The discharge plan is to return home with her spouse, private caregivers and [facility] when medically stable.
--- NOTE | 2024-11-02 13:53 | W.PN.HOSP.TC ---
Today's Communication/Plan
-
Assessment / Plan
Assessment / Plan
General: No Apparent Distress, Comfortable and Conversant
HEENT: NormoCephalic, Moist mucous membranes, Atraumatic
Respiratory: Clear and Non Labored Respirations
Cardiac: S1/S2 and Regular Rhythm; No Rub or Gallop
GI: Soft, Non Tender, Non Distended and Normal Bowel Sounds
Musculoskeletal: No Edema, no deformity
: NO Velez
Neuro: Awake, Alert, Nonfocal/grossly intact
Psych: Calm and Intact Judgment/Insight
84yo F with HLD, osteoporosis, dementia brought in with chest pain, found Afib with RVR, converted to SR on Cardizem and remained bradycardic, but asymptomatic. Review of respiratory, GI, Urogenital systems - no symptoms reported. No fever or
leukocytosis
A/P:
#New onset Afib with RVR
#Asymptomatic adeola
#Elevated troponin, most likely Non-ischemic myocardial injury 2/2 tachycardia
troponin started to decrease after conversion to SR
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
Echo pending
telemetry
Stop Aricept until PPm placed
Started on Eliquis on admission
TSH WNL
#Mild anemia
follow up with PCP upon d/c
#Dementia, unspecified
Patient cooperative, oriented to herself and place, but not to time, severe impairment of short term memory
#Osteoporosis
#HLD
cont home meds
DVT ppx on Eliquis
Full code
I have spent at leat 53min reviewing chart, test results, communication with consultants, family and providing direct patient care
Anticipated Discharge: 24 - 48 hours
Subjective/Interval History
-
Date of Service: November 02, 2024
Patient was seen and examined at bedside this morning. Heart rate currently controlled. Feeling well. Awaiting pacemaker placement tomorrow.
Objective Data
-
Labs:
Laboratory Results
11/02/24
03:22
WBC 5.5
Hgb 11.8 L
Hct 33.8 L
Plt Count 154
Sodium 138
Potassium 4.7
Chloride 106
Carbon Dioxide 27
BUN 22 H
Creatinine 0.8
Glucose 93
Calcium 9.7
Total Bilirubin 0.4
AST 24
ALT 19
Alkaline Phosphatase 76
Vital Signs:
Vital Signs
Temp Pulse Resp BP Pulse Ox
97.7 F 65 20 115/62 100
11/02/24 07:40 11/02/24 12:03 11/02/24 07:40 11/02/24 12:03 11/02/24 07:40
I&O
11/01/24 11/02/24 11/03/24
06:59 06:59 06:59
Intake Total 480 / 480 360 / 360 240 / 240
Balance 480 / 480 360 / 360 240 / 240
Review of Systems
-
History Source: Patient
All other systems: Reviewed and negative
Physical Exam
-
General: No Apparent Distress
[2024-11-02] MEDS: LIPITOR 20 MG PO (17:17)
--- NOTE | 2024-11-02 18:07 | W.PN.UPDATE ---
Update Note
Progress Note Update
Per Dr. Johnson (who updated Dr. Porter and will update Dr. Yoo), echo showed echodensity in RA, which could be chiari network, but should be added on for VELIA tomorrow to be done prior to PPM to make sure not a thrombus. I added on with nursing
supervisor brake repair and also updated patient. However, I do see that she has dementia per chart. I offered to call daughter, but she would like the physician to discuss with her daughter prior to procedure tomorrow. Updated above team.
--- NOTE | 2024-11-02 19:16 | PTCARENOTE ---
pt continues to be sr on the monitor, hr in the 70s, vss. pt offers no complaints at this time. pt visiting with family. pt educated on plan of care and pt and family verbalized understanding. bed alarm in place for safety. call chiang within reach.
[2024-11-02] MEDS: NON-FORMULARY ITEM 1 DROP BOTH EYES (22:01)
[2024-11-03] VITALS (9 sets, daily range): BP systolic 126–156; BP diastolic 54–79
--- NOTE | 2024-11-03 00:50 | PTCARENOTE ---
Received pt @ change of shift. AAOx2-- not oriented to time. VSS- NSR on monitor. Bed alarm in place. Denies any chest pain. Discussed plan of care for evening, including being NPO @ midnight for PPM in AM. Pt verbalizes understanding. Call chiang
within reach.
--- NOTE | 2024-11-03 07:50 | PTCARENOTE ---
Assumed care of pt from prev nsg shift; Pt AAOx2, confused to time & forgetful. Bed alarm for safety. Pt's VSS w/HR60's & BP 151/54 this AM. Pt is SR on telemetry monitoring. Pt NPO for VELIA/ECHO this am. This RN spoke w/pt's daughter this AM to
update her on current plan of care. Pt w/call chiang within reach & plan of care ongoing.
[2024-11-03] MEDS: FEMARA PO (08:00)
[2024-11-03] MEDS: THERAGRAN PO (12:26)
[2024-11-03] MEDS: OCUVITE SOFTGEL PO (12:26)
[2024-11-03] MEDS: VITAMIN B-12 PO (12:27)
[2024-11-03] MEDS: VITAMIN D3 (cholecalciferol) PO (12:27)
--- NOTE | 2024-11-03 13:00 | W.PN.CD ---
Today's Communication / Plan
-
VELIA today
PPM today
Impression / Plan
-
84-year-old with hyperlipidemia and dementia who presents with chest pain found to be in A-fib with RVR. She was started on a diltiazem drip and converted to normal sinus rhythm.
Paroxysmal atrial fibrillation
-As far as I can tell, this is a new diagnosis for her. On admission she had rapid ventricular rates with heart rates up to the 190s. She converted to NSR with diltiazem drip. TSH nl.
-Tried low-dose diltiazem but she was unable to tolerate this due to symptomatic bradycardia. She even had symptomatic bradycardia with latanoprost eyedrops in the past.
-Plan for PPM on today
-Continue Eliquis 2.5 mg twice daily (age, weight <60 kg)
-Follow-up echo
Tachy Mango syndrome
- PPM today
- TTE showed possible mass in RA and VELIA is done
- VELIA showed no clot but atrial septal hypertrophy and prominent chiari network.
- OK to proceed to ppm today
- Consent obtained from the daughter - pt has dementia.
Abnormal troponin
-Suspect due to nonischemic myocardial injury in the setting of A-fib with RVR
-Peaked at 0.096 and now downtrending
-Okay to stop trending
Tele with SR, no bradycardia
Subjective:
No active complaints.
Physical Exam
Vital Signs/Labs
Vital Signs
Temp Pulse Resp BP Pulse Ox
98.1 F 66 16 155/63 99
11/03/24 11:40 11/03/24 12:00 11/03/24 11:40 11/03/24 11:40 11/03/24 11:40
11/02/24 03:22
11/02/24 03:22
Magnesium 2.1 mg/dl (1.6-2.3) 10/30/24 15:00
Physical Exam
Constitutional: No acute distress, Comfortable and Confusion
EENT: Anicteric and Moist mucous membranes
Cardiovascular: Rhythm & rate is regular, Pedal edema is absent and JVD pressure is normal
Respiratory: Respiratory effort normal, Lungs clear to auscul. and Wheeze Absent
GI: Soft, Non tender and Normal bowel sounds
Neuro/Psych: Alert and Oriented
Data Reviewed
-
Date of Service: November 03, 2024
Medical Decision Making: Reviewed Test Results, Test Interpretation and Review of Case with other Provider
EKG: Tracing Personally Visualized and interpreted
Echo: Report Reviewed by me
Labs: Labs Reviewed by me
Old Records: Reviewed
--- NOTE | 2024-11-03 14:23 | W.PN.HOSP.TC ---
Today's Communication/Plan
-
Assessment / Plan
Assessment / Plan
General: No Apparent Distress, Comfortable and Conversant
HEENT: NormoCephalic, Moist mucous membranes, Atraumatic
Respiratory: Clear and Non Labored Respirations
Cardiac: S1/S2 and Regular Rhythm, heart rate around 60
GI: Soft, Non Tender, Non Distended and Normal Bowel Sounds
Musculoskeletal: No Edema, no deformity
: NO Velez
Neuro: Awake, Alert, Nonfocal/grossly intact
Psych: Calm and Intact Judgment/Insight
84yo F with HLD, osteoporosis, dementia brought in with chest pain, found Afib with RVR, converted to SR on Cardizem and remained bradycardic, but asymptomatic. Review of respiratory, GI, Urogenital systems - no symptoms reported. No fever or
leukocytosis
A/P:
#New onset Afib with RVR
#Asymptomatic adeola
#Elevated troponin, most likely Non-ischemic myocardial injury 2/2 tachycardia
- troponin started to decrease after conversion to SR
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
- planned for PPM on 11/03/24
- Transthoracic echo showed Chiari network versus right atrial mass, transesophageal echo confirmed Chiari network with no evidence of atrial mass
- Pending pacemaker placement
- Anticoagulation with Eliquis
- Stop Aricept until PPm placed
#Mild anemia
follow up with PCP upon d/c
#Dementia, unspecified
Patient cooperative, oriented to herself and place, but not to time, severe impairment of short term memory
#Osteoporosis
#HLD
cont home meds
DVT ppx on Eliquis
Full code
I have spent at leat 52 min reviewing chart, test results, communication with consultants, family and providing direct patient care
Anticipated Discharge: 24 - 48 hours
Subjective/Interval History
-
Date of Service: November 03, 2024
Patient was seen and examined at bedside this morning. Comfortable, hemodynamically stable. Awaiting VELIA and pacemaker placement today.
Objective Data
-
Vital Signs:
Vital Signs
Temp Pulse Resp BP Pulse Ox
98.1 F 66 16 155/63 99
11/03/24 11:40 11/03/24 12:00 11/03/24 11:40 11/03/24 11:40 11/03/24 11:40
I&O
11/02/24 11/03/24 11/04/24
06:59 06:59 06:59
Intake Total 360 / 360 240 / 240
Balance 360 / 360 240 / 240
Review of Systems
-
History Source: Patient
All other systems: Reviewed and negative
Physical Exam
-
General: No Apparent Distress
[2024-11-03] MEDS: NAMENDA PO (15:47)
--- NOTE | 2024-11-03 18:19 | ITS.CL.PACE ---
Order Dispatcher Chief - Pacemaker Implant
Pacemaker Implant
Procedure Report:
Dual Chamber Pacemaker Placement:
Ms. Cantu is an 84-year-old woman with hx of atrial fibrillation with tachy adeola syndrome and severe bradycardia is recommended a pacemaker placement.
Indications: Tachy Adeola Syndrome
Date of the Procedure: 11/03/2024
Pre-Operative Diagnosis: Tachy Adeola Syndrome
Post-Operative Diagnosis: Tachy Adeola Syndrome
Procedure Performed: DUAL CHAMBER PACEMAKER IMPLANTATION
Performing Physician:
Christiana Yoo MD
Assistants:
EP staff
Anesthesia:
See anesthesia report
Pre-operative antibiotics:
Ancef
Detailed Description of the Procedure:
The patient was identified using hospital identification and informed consent obtained for the procedure. The risks were explained including, but not limited to: Bleeding, infection, arrhythmia, stroke, vascular/cardiac/lung puncture, surgery,
pacemaker dependency/device malfunction. All questions were answered.
The patient was brought to the electrophysiology laboratory in stable condition in fasting state. Continuous electrocardiographic and hemodynamic monitoring was initiated.
The initial rhythm was sinus.
A surgical pause and time out was performed immediately prior to the procedure with review of her medical history, recent labs, allergies and medications with site of procedure identified and consent noted in the chart. Antibiotics pre operatively
given. All team members concurred.
The procedure site was meticulously prepared with surgical scrub and allowed to dry with no pooling. Sterile draping was applied to cover the procedure site. The image intensifier was draped with sterile bag and positioned over the patient.
The left infraclavicular region was prepped and draped in the usual sterile fashion. Local anesthesia was administered subcutaneously using 1% lidocaine / Bupivacaine. The left cephalic vein cutdown was performed with an incision at the
delto-pectoral groove, and guidewire was placed in the cephalic vein to the axillary vein. The guidewire / glidewire (Terumu) was not able to advacned into the axillary vein. Venogram was done that showed venous stenosis with collaterals but a
channel was present. The Axillary vein was accessed using micropuncture and vascular sheaths were introduced for lead access. These were advanced into the right ventricle and the right atrium.
The right ventricular lead was secured in position with an active fixation technique at the apical septal location.
The RA lead was attached in the right atrial appendage with passive miah fixation.
There was excellent sensing, pacing, and impedance from the leads, with no diaphragmatic stimulation at 10 V output.�Bovie cautery, antibiotics, and fluoroscopy were used.
The sheaths were withdrawn, and the thresholds remained acceptable. The leads were secured in position at the venous entry site with 2-0 Ethibond. A pocket was fashioned contiguous to the incision. The electrode terminals were connected to the pulse
generator, which was placed into the pocket. The wound was irrigated thoroughly with antibiotic solution.
The device was anchored to the underlying fascia using 2-0 Ethibond suture.
The wound was closed in 3 layers using 2-0 V loc then two layers of 4-0 Monocryl sutures to the dermis. Steri-strips were applied externally and covered with Aquacel bandage.
Procedure End:
The procedure was tolerated well.
Estimated Blood loss:
5 cc
Specimens Removed:
No cultures and no specimens were obtained. No intraoperative pathology was identified.
Fluoro time:
8.5 min / 9.4mGy
Urine output:
None
Packs / Drains/ Tubes:
None
Instrument / Sponge Count Correct:
Yes
Complications of the Procedure:
None
Condition of Patient at Time of Transfer:
Hemodynamically stable with no neurological or vascular compromise.
Device information:�
Generator: Three Ring; Model: W1DR01; Serial # [id number]�
Atrial Lead:
Medtronic; Model: 4574-53; Serial # [id number]�
Measured data in the right atrium was sensing of 1.7 mV, impedance of 820 ohms and threshold of 0.5 V at 0.4ms.
RV Lead:
Medvogogo; Model: 5076-58; Serial # [id number]
Measured data in the RV lead was sensing of 10 mV, impedance of 960 ohms and threshold of 0.5 V at 0.4ms�
Adeola parameter settings were AAIR < = > DDDR 60-130 bpm. �
����������� Mode Switch: On
����������� Paced AV interval: 180ms
����������� Sensed AV interval: 150 ms.
����������� Rate Adaptive A-V Interval: Off
Output parameters:
����������������������� Amplitude (V)������������� Pulse Width (ms)������� Sensitivity (mV)
����������� RA: ���� 3.5 ����������������� ����������� 0.4������������������ ����������� 0.3
����������� RV:����� 3.5������������������ ����������� 0.4������������������ ����������� 0.9
Summary:
Successful implantation of MRI compatible dual chamber Medtronic pacemaker
Results/Recommendations:
-Please follow up CXR�
1. Please provide patient with adequate pain control�
Instructions to be given to patient:�
- Please follow up with [facility] at [address] [place] [address] ([phone]) to get your wound checked within 14 days of your discharge.
- Do not wet incision site until after it is evaluated at cardiology clinic. No soaking or bath until then. Showers or Sponge baths are OK.�Dab dry the area after a shower.
- Do not lift left elbow above shoulder, particularly with sudden jerking movements, for 1 month�
- Do not lift anything weighing more than 10 pounds with the left arm for 1 month�
- If you notice any fevers, shortness of breath, lightheadedness, chest pain, or worsening swelling in the wound site, please contact the arrhythmia clinic, contact your electronic scale tester, or present to the hospital for evaluation.�
Christiana Yoo MD
Electrophysiology
[2024-11-03] MEDS: OCUVITE SOFTGEL 1 CAP PO (21:34)
[2024-11-03] MEDS: ELIQUIS 2.5 MG PO (21:34)
[2024-11-03] MEDS: NAMENDA 10 MG PO (21:34)
[2024-11-03] MEDS: ANCEF 5 IV (21:35)
[2024-11-03] MEDS: LIPITOR 20 MG PO (21:35)
[2024-11-03] MEDS: NON-FORMULARY ITEM 1 DROP BOTH EYES (21:40)
--- NOTE | 2024-11-04 04:40 | PTCARENOTE ---
Rec'd pt at change of shift. Pt AAO*2 (forgetful of time at baseline), VSS, and SR with occasional Apacing on TELE monitor. Pt denies any pain or discomfort. L upper chest wall CDI. Pt resting with call chiang in reach. See MAR and flowchart for
full pt care and assessment.
[2024-11-04 05:03] VITALS: BP 113/73
[2024-11-04 05:04] VITALS: BP 113/73
[2024-11-04 05:20] VITALS: BMI 22.8
[2024-11-04] MEDS: ANCEF 5 IV (05:21)
[2024-11-04 05:58] LABS: Hematocrit 36.5 % (37.0-47.0); Hemoglobin 12.3 g/dL (12.0-16.0); Mean Corp Hgb Conc. 33.7 g/dL (33.0-37.0); Mean Corpuscular Volume 94.1 fL (81.0-99.0); Platelet Count 172 10^3/uL (130-400); Red Cell Dist. Width 13.6 % (11.5-14.5)
[2024-11-04 06:16] LABS: Blood Urea Nitrogen 18 mg/dl (7-17); Calcium 9.6 mg/dl (8.4-10.2); Carbon Dioxide 27 mmol/L (22-30); Chloride 105 mmol/L (98-107); Estimated Creatinine Clearance 35 ml/min; Glucose 79 mg/dl (70-99); Magnesium 1.9 mg/dl (1.6-2.3); Potassium 4.6 mmol/L (3.5-5.1); Sodium 138 mmol/L (135-145); eGFR > 60.00
--- NOTE | 2024-11-04 07:53 | W.PN.CD ---
Today's Communication / Plan
-
- Start Toprol 25 mg BID
- Pressure dressing removed. PPM site is OK
- Ok to start Aricept and Eliquis
Impression / Plan
-
84-year-old with hyperlipidemia and dementia who presents with chest pain found to be in A-fib with RVR. She was started on a diltiazem drip and converted to normal sinus rhythm.
Paroxysmal atrial fibrillation
-Tach noe and difficult to rate control
-s/p PPM 11/03/24
-Continue Eliquis 2.5 mg twice daily (age, weight <60 kg)
-Follow-up echo 11/02; Possible RA echo density - VELIA 11/03 showed thick septum and chiari network
- With PPM in place, will start Toprol 25 mg BID.
Tachy Mango syndrome
- s/p PPM - dual chamber Medtronic. 11/03/24
- TTE showed possible mass in RA and VELIA is done
- VELIA showed no clot but atrial septal hypertrophy and prominent chiari network.
- Pressure dressing removed.
- CXR is showing normal lead placement.
- demand pacing noted.
Abnormal troponin
-Suspect due to nonischemic myocardial injury in the setting of A-fib with RVR
-Peaked at 0.096 and now downtrending
-Okay to stop trending
Tele with SR, no bradycardia
Subjective:
No active complaints. pressure dressing removed.
Physical Exam
Vital Signs/Labs
Vital Signs
Temp Pulse Resp BP Pulse Ox
99 F 70 16 113/73 96
11/04/24 05:03 11/04/24 07:15 11/04/24 05:03 11/04/24 05:04 11/04/24 05:03
11/03/24 11/04/24 11/05/24
06:59 06:59 06:59
Actual Weight 51.2 kg
11/04/24 05:24
11/04/24 05:24
Magnesium 1.9 mg/dl (1.6-2.3) 11/04/24 05:24
Physical Exam
Constitutional: No acute distress, Comfortable and Confusion
EENT: Anicteric and Moist mucous membranes
Cardiovascular: Rhythm & rate is regular, Pedal edema is absent and JVD pressure is normal
Respiratory: Respiratory effort normal, Lungs clear to auscul. and Wheeze Absent
GI: Soft, Non tender and Normal bowel sounds
Neuro/Psych: Alert and Oriented
Other: Cardiac Device Site
Data Reviewed
-
Date of Service: November 04, 2024
Medical Decision Making: Reviewed Test Results, Test Interpretation and Review of Case with other Provider
EKG: Tracing Personally Visualized and interpreted
X-Ray/CT/US/MRI/NUC/PET: Image Personally Visualized and interpreted
Labs: Labs Reviewed by me and Labs Ordered by me
Old Records: Reviewed
[2024-11-04 07:55] VITALS: BP 111/65
--- NOTE | 2024-11-04 08:05 | PTCARENOTE ---
Assumed care of pt from nursing shift; Pt AAOx2, confused to time, but this is pt's baseline. Pt's VSS w/HR in the 70's & BP 111/65 this AM. Pt is SR w/occas A-pacing on telemetry monitoring. Pt w/L chest wall new PPM device site w/dressing C/D/I
w/no signs or symptoms of bleeding or hematoma. Pt reports no pain at the site at this time. Pt w/callbell within reach & no addtl needs at this time. Plan of care ongoing.
[2024-11-04] MEDS: FEMARA 2.5 MG PO (10:08)
[2024-11-04] MEDS: VITAMIN D3 (cholecalciferol) 25 MCG PO (10:08)
[2024-11-04] MEDS: NAMENDA 10 MG PO (10:08)
[2024-11-04] MEDS: ELIQUIS 2.5 MG PO (10:08)
[2024-11-04] MEDS: THERAGRAN 1 TABLET PO (10:09)
[2024-11-04] MEDS: OCUVITE SOFTGEL 1 CAP PO (10:09)
[2024-11-04] MEDS: TYLENOL 650 MG PO (10:09)
[2024-11-04] MEDS: VITAMIN B-12 1000 MCG PO (10:09)
[2024-11-04 11:13] VITALS: BP 117/59
--- NOTE | 2024-11-04 13:03 | CM ---
Reviewed chart. Telephone call to Filiyumilian ,([phone]) to check on coverage for Eliquis 5 mg po bid. She has met her deductible and her co-pay would be $146.76 a month. Placed the one month free month coupon in her red discharge folder.
Telephone call to DaughterNeida to review co-pay for Eliquis. She is agreeable to the co-pay. We also reviewed [facility] and she is agreeable to [facility]. Prior to admission she resides in a first floor apartment without any steps to
enter. Daughter resides a mile away and she is in and out to assist them as needed. Prior to admission Mrs. Cantu ambulates with a single point cane and sometimes in the apartment independently. She has a walker and single point cane at home.
Daughter states they has private caregivers the come in three times a week on Saturday, and Saturday for a couple of hours to assist in their care. Mrs. Cantu was going to outpatient therapy for physical and speech therapy twice a week.
She has a prescription plan and uses [facility]. Medical work-up in progress. The discharge plan is to return home with her spouse, private caregivers and [facility] when medically stable.
--- NOTE | 2024-11-04 14:39 | W.DCSUMMARY ---
Discharge Summary
Discharge Data
Date of Admission: 10/30/24
Date of Discharge: 11/04/24
Total time spent discharging patient (in min): 44
-
Pending Results: No
Hospital Course
Ms. Cantu is an 84-year-old female with medical history of breast cancer (status post mastectomy and chemo, on letrozole), glaucoma, DVT, dementia, and osteoporosis who presented with chest pain. She was found to be in A-fib with RVR. She was
started on IV Cardizem drip for rate control which was later discontinued after she converted to normal sinus rhythm. She became bradycardic with heart rate dipping down to the 40s. She was evaluated by cardiology due to concern for
tachybradycardia syndrome. Echocardiogram was remarkable only for prominent right atrial Chiari network. She was started on anticoagulation with Eliquis. Ultimately she was brought for permanent pacemaker placement on 11/03/2024 and tolerated the
procedure well. She has been started on metoprolol succinate 25 mg twice daily for rate control. She was medically stable at time of hospital discharge. She will need close follow-up with her primary care physician and with cardiology in the
outpatient setting.
General: No Apparent Distress, Comfortable and Conversant
HEENT: NormoCephalic, Moist mucous membranes, Atraumatic
Respiratory: Clear and Non Labored Respirations
Cardiac: S1/S2 and Regular Rhythm, heart rate around 65, left chest pacemaker site clean dry intact
GI: Soft, Non Tender, Non Distended and Normal Bowel Sounds
Musculoskeletal: No Edema, no deformity
: NO Velez
Neuro: Awake, Alert, Nonfocal/grossly intact
Psych: Calm and cooperative
Discharge Plan
-
Patient Disposition: Home (Routine Discharge)
Discharge Diagnosis/Procedures: Pacemaker implant
Driving Restrictions: No driving for 1 week
Bathing Restrictions: OK to Shower
Activity Restrictions/Additional Instructions:
Ms. Cantu is an 84-year-old female with medical history of breast cancer (status post mastectomy and chemo, on letrozole), glaucoma, DVT, dementia, and osteoporosis who presented with chest pain. She was found to be in A-fib with RVR. She was
started on IV Cardizem drip for rate control which was later discontinued after she converted to normal sinus rhythm. She became bradycardic with heart rate dipping down to the 40s. She was evaluated by cardiology due to concern for
tachybradycardia syndrome. Echocardiogram was remarkable only for prominent right atrial Chiari network. She was started on anticoagulation with Eliquis. Ultimately she was brought for permanent pacemaker placement on 11/03/2024 and tolerated the
procedure well. She has been started on metoprolol succinate 25 mg twice daily for rate control. She was medically stable at time of hospital discharge. She will need close follow-up with her primary care physician and with cardiology in the
outpatient setting.
Stand Alone Forms: DC Inst - Implanted Device
Referrals:
[facility] [Provider Group] - 11/12/24 1:20 pm
Referral Note: Incision check appointment
[facility] [Outside]
Galilea Grant CRNP [Family Provider, Family Practice]
Prescriptions:
New
metoprolol succinate 25 mg Tablet Extended Release 24 Hr
25 mg PO BID 30 Days Qty: 60 0RF
Eliquis 2.5 mg Tablet
2.5 mg PO BID 30 Days Qty: 60 0RF
Continued
letrozole 2.5 MG tablet
2.5 mg PO DAILY
alendronate 70 mg Tablet
70 mg PO WE
Rocklatan 0.02-0.005 % Drops
1 drp BOTH EYES HS
memantine 10 mg Tablet
10 mg PO BID
therapeutic multivitamin Tablet
1 tab PO DAILY
atorvastatin [Lipitor] 20 mg Tablet
20 mg PO QPM
donepezil 10 mg Tablet
10 mg PO HS
cyanocobalamin (vitamin B-12) 1,000 mcg Tablet
1,000 mcg PO DAILY
cholecalciferol (vitamin D3) [Vitamin D3] 25 mcg (1,000 unit) Tablet
25 mcg PO DAILY
PreserVision AREDS-2 250-90-40-1 mg Capsule
1 tab PO BID
Discharge Orders:
Discharge Patient (As Directed); Ordered 11/04/24
Ordered By: Wesley Molina
Care Plan Goals
Care Plan Goals:
Problem: Readiness for enhanced knowledge related to diagnosis and treatment plan
Goal: Understand your diagnosis and treatment plan needs, including medications if applicable.
Instructions: Know your diagnosis, underlying causes and treatment plan options, including medications if applicable. Consult with your health care team to learn about your diagnosis and treatment plan, including medications if applicable.
Discharge Date and Time
Print Language: KAZAKH
--- NOTE | 2024-11-04 17:23 | PTCARENOTE ---
Pt's IV line & director emergency department D/C'd; D/C instructions discussed w/pt's daughter. Pt escorted out via WC by staff w/daughter driving pt home.
== END 2024-11-04 17:23 | disposition home or self-care (01) | DRG 243 ==
LOC: IVU 16:57
PROVIDERS: Emergency Medicine; Internal Medicine; Internal Medicine Cardiovascular Disease; Nurse Practitioner Adult Health; ADMITTING PHYSICIAN Hospitalist; ATTENDING PHYSICIAN Internal Medicine; CONSULT PHYSICIAN Student in an Organized Health Care Education/Training Program; EMERGENCY PHYSICIAN Student in an Organized Health Care Education/Training Program; FAMILY PHYSICIAN Nurse Practitioner Family
PROC: 02H63JZ Insertion of Pacemaker Lead into Right Atrium, Percutaneous Approach (ICD-10-PCS; 2024-11-03)
PROC: 02HK3JZ Insertion of Pacemaker Lead into Right Ventricle, Percutaneous Approach (ICD-10-PCS; 2024-11-03)
PROC: 0JH606Z Insertion of Pacemaker, Dual Chamber into Chest Subcutaneous Tissue and Fascia, Open Approach (ICD-10-PCS; 2024-11-03)
PROC: B246ZZ4 Ultrasonography of Right and Left Heart, Transesophageal (ICD-10-PCS; 2024-11-03)
DX: I49.5 Sick sinus syndrome (principal); I5A Non-ischemic myocardial injury (non-traumatic); F03.90 Unspecified dementia, unspecified severity, without behavioral disturbance, psychotic disturbance, mood disturbance, and anxiety; M81.0 Age-related osteoporosis without current pathological fracture; Z85.3 Personal history of malignant neoplasm of breast; Z90.10 Acquired absence of unspecified breast and nipple; Z92.21 Personal history of antineoplastic chemotherapy; I48.91 Unspecified atrial fibrillation; E78.00 Pure hypercholesterolemia, unspecified; Z86.718 Personal history of other venous thrombosis and embolism; Z82.49 Family history of ischemic heart disease and other diseases of the circulatory system; Z87.891 Personal history of nicotine dependence; Z79.811 Long term (current) use of aromatase inhibitors; Z79.83 Long term (current) use of bisphosphonates; Z79.899 Other long term (current) drug therapy
CPT/HCPCS: 33208; 71045; 80048; 80053; 83735; 84443; 84484; 85025; 85027; 93005; 93306; 93312; 93320; 93325; 96361; 96374; 96375; 96376; 99291; C1785; C1898; Q9967

== ENCOUNTER → 2024-11-16 14:18 | Outpatient (REF) | payer OTHER, SELFPAY | LOC: RAD 14:18 | PROVIDERS: ATTENDING PHYSICIAN Internal Medicine Cardiovascular Disease; FAMILY PHYSICIAN Nurse Practitioner Family | DX: Z95.0 Presence of cardiac pacemaker (principal) | CPT/HCPCS: 71046 ==

== ENCOUNTER 2024-11-26 07:57 | Day surgery (SDC) | payer OTHER, SELFPAY ==
[2024-11-26] VITALS (10 sets, daily range): BP systolic 133–175; BP diastolic 49–99; BMI 23.6
--- NOTE | 2024-11-26 11:55 | PTCARENOTE ---
pt admitted to room 2246 post lead replacement. left arm in arm immobilizer. left chest with pressure dressing intact. pt oriented to room and unit. ecg completed. pt and daughter updated on plan of care.
--- NOTE | 2024-11-26 14:12 | CM ---
Chart reviewed. Patient is independent of ADLS, lives with her in a 1st floor apartment, ambulates with a RW, 0 WINSTON. Patient is current with [facility]. Plan is to resume services with [facility]. CM to follow
[2024-11-26] MEDS: ANCEF 5 IV (15:32)
[2024-11-26] MEDS: TYLENOL 650 MG PO (15:46)
[2024-11-26] MEDS: LIPITOR 20 MG PO (17:23)
[2024-11-26] MEDS: NAMENDA 10 MG PO (19:51)
[2024-11-26] MEDS: TOPROL XL 25 MG PO (19:51)
[2024-11-26] MEDS: ARICEPT 10 MG PO (22:43)
[2024-11-26] MEDS: NON-FORMULARY ITEM 1 DROP BOTH EYES (22:44)
--- NOTE | 2024-11-26 22:56 | PTCARENOTE ---
Received pt at change of shift resting in bed. SR with A-pacing on tele, HR 60. pt AOx2, disoriented to date. pt denies any CP or SOB. Left PPM site with Aquacel and pressure dressing C.D.I. No bleeding noted at this time. Immobilizer on. Bed alarm
on and audible on and audible. Encouraged pt to call staff training and development manager for assistance ambulating. pt calls appropriately, call chiang within reach.
[2024-11-27] MEDS: ANCEF 5 IV (00:09)
[2024-11-27 04:25] VITALS: BP 149/56
[2024-11-27 05:13] LABS: Hematocrit 35.2 % (37.0-47.0); Hemoglobin 11.7 g/dL (12.0-16.0); Mean Corp Hgb Conc. 33.2 g/dL (33.0-37.0); Mean Corpuscular Volume 97.5 fL (81.0-99.0); Platelet Count 171 10^3/uL (130-400); Red Cell Dist. Width 14.0 % (11.5-14.5)
[2024-11-27 05:58] LABS: Blood Urea Nitrogen 18 mg/dl (7-17); Calcium 9.6 mg/dl (8.4-10.2); Carbon Dioxide 28 mmol/L (22-30); Chloride 105 mmol/L (98-107); Estimated Creatinine Clearance 36 ml/min; Glucose 84 mg/dl (70-99); Magnesium 2.2 mg/dl (1.6-2.3); Potassium 4.7 mmol/L (3.5-5.1); Sodium 138 mmol/L (135-145); eGFR > 60.00
[2024-11-27 07:23] VITALS: BP 147/63
[2024-11-27 07:26] VITALS: BP 160/60
--- NOTE | 2024-11-27 08:49 | W.PN.CARDCBS ---
Addendum entered and electronically signed by Kai Palomo MD 11/27/24 09:16:
Tried to contact the patient's daughter but unable to reach her by cell. Only voicemail. Can communicate with family when they arrive to pick the patient up.
Addendum entered and electronically signed by Kai Palomo MD 11/27/24 09:11:
I saw and examined the patient.
The CORRECTION LIEUTENANT's note was reviewed and I agree with the note.
Patient is comfortable sitting in chair. Pacemaker site appears fine. Bandage intact. Patient feels well wants to go home.
Resuming Eliquis.
Plan for outpatient follow-up in our office.
Original Note:
Today's Communication / Plan
-
restart eliquis this morning
incision check next week
home today
Impression / Plan
-
PCP: Galilea Grant NP
CDY: Christiana Yoo MD
84 y/o, recent DC PPM 11/03/24 for SSS, PAF. RA lead found to be dislodged with increased impedence. Presented to EP lab, s/p RA lead extraction with new RA lead placed.
IMPRESSION/PLAN
SSS, s/p PPM implant 11/03/24
RA lead revision with original lead extracted and new fixating RA lead placed, 11/26/24
Tele- NSR w/A/AV pacing
Left ACW site stable, no ht/bleeding
post cxr w/stable lead position, no pneumothorax
resume elqiuis today
activity restrictions reviewed but will need reinforcement with pt/family present
incision check in 1 week at [facility]
home today
AFib- [id number]
low dose eliquis 2.5mg BID- restart this morning
Dementia- reinforced device instructions with patient/family
Progress Note - Route Sales Specialist
Subjective
Date of Service: November 27, 2024
Denies cp/palps/dyspnea
oob to chair
device site without pain
Objective
Labs:
11/27/24 04:42
11/27/24 04:42
Labs
Hgb 11.7 g/dL (12.0-16.0) L 11/27/24 04:42
Hct 35.2 % (37.0-47.0) L 11/27/24 04:42
Plt Count 171 10^3/uL (130-400) 11/27/24 04:42
Sodium 138 mmol/L (135-145) 11/27/24 04:42
Potassium 4.7 mmol/L (3.5-5.1) 11/27/24 04:42
BUN 18 mg/dl (7-17) H 11/27/24 04:42
Creatinine 0.8 mg/dL (0.6-1.0) 11/27/24 04:42
Glucose 84 mg/dl (70-99) 11/27/24 04:42
Vital Signs and I&O:
Vital Signs
Temp Pulse Resp BP Pulse Ox
97.6 F 64 15 160/60 99
11/27/24 07:24 11/27/24 07:30 11/27/24 07:24 11/27/24 07:26 11/27/24 07:24
Vital Signs
Temp Pulse Resp BP Pulse Ox
97.6 F 64 15 160/60 99
11/27/24 07:24 11/27/24 07:30 11/27/24 07:24 11/27/24 07:26 11/27/24 07:24
Intake & Output
11/25/24 11/26/24 11/27/24 11/28/24
06:59 06:59 06:59 06:59
Intake Total 1200 / 1200
Balance 1200 / 1200
Physical Exam
Physical Exam
AAOx3, MAEE 07/13
RRR S1 S2 no murmurs
CTA bilat, non labored
left ACW w/aquacel dressing CDI, no ht/bleeding, non tender
soft abd, + bs
bilat extremities w/palpable distal pulses, no edema
[2024-11-27] MEDS: NAMENDA 10 MG PO (08:52)
[2024-11-27] MEDS: TOPROL XL 25 MG PO (08:52)
[2024-11-27] MEDS: FLUSH (NSS) 1 FLUSH IV (08:52)
[2024-11-27] MEDS: FEMARA 2.5 MG PO (08:52)
--- NOTE | 2024-11-27 10:04 | W.DS.TRANS ---
DC Summary - Pet Technologist
-
Discharge Instructions:
Sleep Apnea Risk Low
Discharge Diagnosis/Procedures Right atrial lead revision of pacemaker
Diet Low Cholesterol
Driving Restrictions No driving for 1 week
Bathing Restrictions OK to Shower
Instructions:
Stand-Alone Forms: DC Inst - Implanted Device
Changes to Home Medications: No
Discharge Medications:
DC Medications w/original date entered in [facility]
letrozole 2.5 mg tablet 2.5 mg PO DAILY breast cancer 03/06/21
alendronate 70 mg tablet 70 mg PO WE Osteoporosis 12/19/21
netarsudil 0.02 %-latanoprost 0.005 % eye drops (Rocklatan) 1 drp BOTH EYES HS opthalmic pressure 12/20/21
memantine 10 mg tablet 10 mg PO BID dementia 08/31/22
atorvastatin 20 mg tablet (Lipitor) 20 mg PO HS High Cholesterol 10/30/24
cholecalciferol (vitamin D3) 25 mcg (1,000 unit) tablet (Vitamin D3) 25 mcg PO DAILY Supplement 10/30/24
cyanocobalamin (vitamin B-12) 1,000 mcg tablet 1,000 mcg PO DAILY Supplement 10/30/24
donepezil 10 mg tablet 10 mg PO HS dementia 10/30/24
therapeutic multivitamin 1 tab PO DAILY Supplement 10/30/24
vit C 250 mg-vit E 90 mg-zinc 40 mg-copper 1 [id number] capsule (PreserVision AREDS-2) 1 tab PO BID Supplement 10/30/24
metoprolol succinate 25 mg tablet,extended release 24 hr 25 mg PO BID 30 days #60 tabs 11/04/24
apixaban 2.5 mg tablet (Eliquis) 2.5 mg PO BID afib 11/26/24
Home Medication Changes
Pending Results: No
[2024-11-27] MEDS: ELIQUIS 2.5 MG PO (10:14)
--- NOTE | 2024-11-27 10:28 | PTCARENOTE ---
Patient assisted oob to the bathroom and now sitting in the chair, alarm in place. Patient's pressure dressing removed from the left upper chest by PROCESS ANALYST, aquacel dressing is dry and intact. Patient seen by cardiology and is ok for discharge home.
Daughter in the room now and will go over instructions with her.
--- NOTE | 2024-11-27 13:47 | ITS.CL.PACE ---
Director Broadcast - Pacemaker Implant
Pacemaker Implant
Procedure Report:
Lead Revision for Dual Chamber Pacemaker Placement:
Ms. Cantu is an 84 yrs old woman s/p dual chamber PPM on 11/03/24 and is noted to have RA lead dislodgement and is here for ICD lead revision.
Indications: Sick sinus syndrome and tachy adeola syndrome and dislodged atrial lead
Date of the Procedure: 11/26/24
Pre-Operative Diagnosis: Sick sinus syndrome and tachy adeola syndrome and dislodged atrial lead
Post-Operative Diagnosis: Sick sinus syndrome and tachy adeola syndrome and dislodged atrial lead
Procedure Performed: Atrial lead removal and reimplant of active fixation lead.
Performing Physician:
Christiana Yoo MD
Anesthesia:
See anesthesia records
Pre-operative antibiotics:
Ancef 2gm IV
Detailed Description of the Procedure:
The patient was identified using hospital identification and informed consent obtained for the procedure. The risks were explained including, but not limited to: Bleeding, infection, arrhythmia, stroke, vascular/cardiac/lung puncture, surgery,
pacemaker dependency/device malfunction. All questions were answered.
The patient was brought to the electrophysiology laboratory in stable condition in fasting state. Continuous electrocardiographic and hemodynamic monitoring was initiated. The initial rhythm was sinus with occ RV paced rhythm.
The procedure site was meticulously prepared with surgical scrub and allowed to dry with no pooling. Sterile draping was applied to cover the procedure site. The image intensifier was draped with sterile bag and positioned over the patient.
A surgical pause and time out was performed immediately prior to the procedure with review of her medical history, recent labs, allergies and medications with site of procedure identified and consent noted in the chart. Antibiotics pre operatively
given. All team members concurred.
The left infraclavicular region was prepped and draped in the usual sterile fashion. Local anesthesia was administered subcutaneously using 1% lidocaine / Bupivacaine. Using the prior incision, the skin was incised again and the debris and the prior
sutures were removed. There were blood pool noted in the device pocket and was drained and cleaned. The pocket was revised and the active bleeders were cauterized.
The leads identified attached to underlying fascia and were released individually. The device was interrogated. The right ventricular lead was tested and adequate threshold was noted via the device. The patient was paced via the RV lead while the RA
lead was tested and had been noted to have moved to the tricuspid annulus area with high threshold for atrial capture and no ventricular capture.
There was extensive tortuosity noted on the venous pathways. The passive lead was again thought to be at high risk for dislocation and decision was made to replace it with active lead.
The passive lead was successfully removed without any change to the RV lead to the SVC area. Then the access to axillary vein was done using micropunture needle and apparatus. The wire was difficult to position into the SVC and the long sheath was
used to access to the SVC and right atrium.
The new atrial lead was placed in the right atrial appendage and excellent sensing and threshold noted. The lead was deployed using the active fixation mechanism.
The passive lead was removed from the body without any change in the position of the other leads.
There was excellent sensing, pacing, and impedance from the leads, with no diaphragmatic stimulation at 10 V output.�Bovie cautery, antibiotics, and fluoroscopy were used.
The sheaths was withdrawn, and the thresholds remained acceptable. The leads were secured in position at the venous entry site with 2-0 Ethibond. The electrode terminals were connected to the pulse generator, which was placed into the pocket. The
wound was irrigated thoroughly with antibiotic solution.
A pursestring suture using 2-0 Vicryl was deployed at the insertion site to avoid any bleeding.
A Tyrx pouch was placed around the pocket and the leads.
The pocket was closed in 3 layers using 2-0 VLoc sutures and two layers of 4-0 Monocryl sutures. Steri-Strips and a bandage were applied externally.�
Procedure End:
The procedure was tolerated well. A bandage was applied to the incision area. Pressure dressing was placed.
Estimated Blood loss:
5 cc
Specimens Removed:
No cultures and no specimens were obtained. No intraoperative pathology was identified.
Urine output:
None
Packs / Drains/ Tubes:
None
Instrument / Sponge Count Correct:
Yes
Complications of the Procedure:
None
Condition of Patient at Time of Transfer:
Hemodynamically stable with no neurological or vascular compromise.
Removed Hardware:
Medtronic; Model: 4574-53; Serial # [id number]
Implanted on 11/03/24 and explanted on 11/26/2024
Current Device information:�
Generator: [employer]; Model: W1DR01; Serial # [id number]
����������� Implanted on 11/03/24
Atrial Lead: Medtronic; Model: 5076-52; Serial # [id number]
����������� Measured data on the RV lead was sensing of 1.2 mV, impedance of 570 ohms and threshold of 0.5 V at 0.4ms�
����������� Implanted on 11/26/2024
RV Lead: Medtronic; Model: 5076-58; Serial # [id number]
����������� Measured data on the RV lead was sensing of 5 mV, impedance of 560 ohms and threshold of 0.75 V at 0.4ms�
����������� Implanted on 11/03/24
PROGRAMMING PARAMETERS:�
Adeola parameter settings were
����������� AAIR < = > DDDR 60-130 bpm
����������� Mode Switch: On
����������� Paced AV interval: 180ms
����������� Sensed AV interval: 150 ms.
����������� Rate Adaptive A-V Interval: Off
Output parameters:
����������������������� Amplitude (V)������������� Pulse Width (ms)������� Sensitivity (mV)
����������� RA: ���� 3.5 ����������������� ����������� 0.4������������������ ����������� 0.3
����������� RV:����� 3.5������������������ ������������ 0.4������������������ ����������� 0.9
Summary:
Successful removel of atrial lead and reimplantation of MRI compatible atrial lead to dual chamber Medtronic pacemaker
Results/Recommendations:
-Please follow up CXR�
1. Please provide patient with adequate pain control�
Instructions to be given to patient:�
- Please follow up with [facility] at [address] [place] [address] ([phone]) to get your wound checked within 14 days of your discharge.
- Do not wet incision site until after it is evaluated at cardiology clinic. No showers until then. Sponge baths are OK.�
- Allow 'steri strips' to fall off on their own�
- Do not lift left elbow above shoulder, particularly with sudden jerking movements, for 1 month�
- Do not lift anything weighing more than 5 pounds with the left arm for 1 month�
- If you notice any fevers, shortness of breath, lightheadedness, chest pain, or worsening swelling in the wound site, please contact the arrhythmia clinic, contact your bleacher [employer]wood [employer], or present to the hospital for evaluation.�
Christiana Yoo MD
Electrophysiology
== END 2024-11-27 10:58 | disposition home or self-care (01) ==
LOC: CATH 07:57
PROVIDERS: Nurse Practitioner Adult Health; ATTENDING PHYSICIAN Internal Medicine Cardiovascular Disease; FAMILY PHYSICIAN Nurse Practitioner Family
DX: T82.120A Displacement of cardiac electrode, initial encounter (principal); Y83.1 Surgical operation with implant of artificial internal device as the cause of abnormal reaction of the patient, or of later complication, without mention of misadventure at the time of the procedure; I49.5 Sick sinus syndrome; E78.5 Hyperlipidemia, unspecified; I48.0 Paroxysmal atrial fibrillation; J98.11 Atelectasis; Z85.3 Personal history of malignant neoplasm of breast; F03.90 Unspecified dementia, unspecified severity, without behavioral disturbance, psychotic disturbance, mood disturbance, and anxiety; M81.0 Age-related osteoporosis without current pathological fracture; H40.9 Unspecified glaucoma; M47.9 Spondylosis, unspecified; Z79.01 Long term (current) use of anticoagulants; Z79.899 Other long term (current) drug therapy; Z79.811 Long term (current) use of aromatase inhibitors
CPT/HCPCS: 33216; 33235; 71045; 80048; 83735; 85027; 93005; C1898

== ENCOUNTER 2024-12-23 13:27 | Emergency (ER) | payer OTHER, SELFPAY ==
[2024-12-23] VITALS (9 sets, daily range): BP systolic 119–204; BP diastolic 54–159; BMI 24.3
[2024-12-23 13:51] LABS: Hematocrit 38.4 % (37.0-47.0); Hemoglobin 12.2 g/dL (12.0-16.0); Mean Corp Hgb Conc. 31.8 g/dL (33.0-37.0); Mean Corpuscular Volume 101.6 fL (81.0-99.0); Nucleated Red Blood Cells % 0 %; Platelet Count 189 10^3/uL (130-400); Red Cell Dist. Width 13.2 % (11.5-14.5)
[2024-12-23 14:06] LABS: ALT (SGPT) 22 U/L (0-35); AST (SGOT) 27 U/L (14-36); Albumin 4.1 g/dl (3.5-5.0); Alkaline Phosphatase 86 U/L (38-126); Blood Urea Nitrogen 20 mg/dl (7-17); Calcium 9.8 mg/dl (8.4-10.2); Carbon Dioxide 31 mmol/L (22-30); Chloride 102 mmol/L (98-107); Glucose 122 mg/dl (70-99); Potassium 4.6 mmol/L (3.5-5.1); Sodium 138 mmol/L (135-145); Total Protein 6.9 g/dl (6.3-8.2); eGFR > 60.00
--- NOTE | 2024-12-23 16:20 | ED.GENMED ---
History of Present Illness
General
Chief Complaint: Blood Pressure Problem
Time Seen by Provider: 12/23/24 15:15
History of Present Illness
History of Present Illness:
84-year-old female with history of sick sinus syndrome with pacemaker, hyperlipidemia, A-fib on Eliquis presenting to the emergency department for episode of hypotension. Patient arrives with daughter who notes that this morning patient had OT and
physical therapy come to the house. They checked her blood pressure, noted that it was 60s over 40s. Daughter went to get a blood pressure cuff and read the blood pressure and it was still low. Daughter reports the patient has had low blood
pressure in the past, however was recently started on metoprolol after her pacemaker wires were replaced on 11/26. She has been taking 25 mg metoprolol twice daily. She had the dose at 10:30 AM this morning and blood pressure was low at 12 PM.
During the hypotensive episode, daughter notes that patient was acting herself, denied any increased dizziness or lightheadedness, or altered mental status. Patient currently denies any acute medical complaints
Past History
Past History
ED Past Medical History: Cancer and Hypercholesterolemia
ED Past Surgical History: None
Social History
Tobacco: Non-smoker
Alcohol: None
Phy Exam
Physical Exam
Physical Exam:
General: Well-appearing, no clinical signs of dehydration, nontoxic and in no acute distress
HEENT: protecting airway
Neck: appears supple
CV: Normal heart rate, regular rhythm, pacemaker in place
Resp: No accessory muscle use, no increased work of breathing, lungs clear to auscultation bilaterally
Abd: No distention
Extremities: No deformities, no swelling
Neuro: alert, no focal neurologic deficit
: deferred
Rectal: deferred
Psych: Normal affect
Skin: Intact
Course
Orders/Labs/Results
Orders:
Orders
12/23/24 13:32
EKG [Electrocardiogram (*1)] Urgent
Reason for Study: Vertigo / Dizzy
EKG- Treatment ONCE
12/23/24 13:34
Complete Blood Count/With Diff Urgent
Comprehensive Metabolic Panel Urgent
Abnormal Lab Results
12/23/24
13:34
RBC 3.78 L 10^6/uL
(4.20-5.40)
MCV 101.6 H fL
(81.0-99.0)
MCH 32.3 H pg
(27.0-31.0)
MCHC 31.8 L g/dL
(33.0-37.0)
Carbon Dioxide 31 H mmol/L
(22-30)
BUN 20 H mg/dl
(7-17)
Glucose 122 H mg/dl
(70-99)
12/23/24 13:34
12/23/24 13:34
Vital Signs
Initial and Last Documented VS:
Initial Vital Signs
Temp Pulse Resp BP Pulse Ox
98.5 F 73 18 122/57 98
12/23/24 13:30 12/23/24 13:30 12/23/24 13:30 12/23/24 13:30 12/23/24 13:30
Last Documented Vital Signs
Temp Pulse Resp BP Pulse Ox
98.6 F 73 18 156/70 100
12/23/24 16:00 12/23/24 16:00 12/23/24 16:00 12/23/24 16:00 12/23/24 16:00
MDM/Problems Addressed
MDM/Problems Addressed:
84-year-old female with history of A-fib on Eliquis, sick sinus syndrome with pacemaker presenting for episode of hypotension prior to arrival.
Vital signs on arrival are normal with normotension. Patient is asymptomatic. Unclear etiology of preceding episode of low blood pressure, however daughter notes that maintained a normal mental status, no syncope. She has chronic balance issues,
however had no acute issues this morning. Suspect that it could have been from medication, patient took her metoprolol prior to the blood pressure being low. EKG obtained here, paced rhythm. Labs obtained, no abnormality. Patient is afebrile,
nontoxic without concern for sepsis or infectious etiology to low blood pressure. Given normal blood pressure here, feel stable for discharge, however did advise following up with cardiology regarding possible medication adjustment of metoprolol,
and to always check blood pressure taking the metoprolol. Advised that she not take metoprolol if the systolic pressures less than 100. Strict return precautions communicated and patient verbalized understanding
*Pulse Oximetry
SaO2: 100
Oxygen Mode of Delivery: Room air
Patient hypoxic: no
*EKG
Interpreted by ED Provider?: Yes
EKG Intrepretation Date: 12/23/24
EKG Intrepretation Time: 16:43
Interpretation: normal
Heart Rate: 75
Rate: normal
Rhythm: other (atrial paced)
[place]: normal axis
Interval: normal interval
QRS Pattern: normal QRS
Ischemia: no ischemia
*Critical Care Note
Total Time (30-74mins, 75-104mins- exclusive of procedures): Not Applicable
ED Attending Note
-
Portions of this chart may have been created with voice recognition software.� Occasional wrong word or��sound alike� substitutions may have occurred due to the inherent limitations of voice recognition software.
Discharge Plan
Departure
Patient Disposition: Home (Routine Discharge)
Date of Disposition: 12/23/24
Time of Disposition: 16:44
Patient with high blood pressure during this ER visit?: No
Condition: Good
Discharge Problem:
Hypotension
Instructions: Managing low blood pressure from your medicines
Prescriptions:
No Action
letrozole 2.5 MG tablet
2.5 mg PO DAILY
alendronate 70 mg Tablet
70 mg PO WE
Rocklatan 0.02-0.005 % Drops
1 drp BOTH EYES HS
memantine 10 mg Tablet
10 mg PO BID
therapeutic multivitamin Tablet
1 tab PO DAILY
atorvastatin [Lipitor] 20 mg Tablet
20 mg PO HS
donepezil 10 mg Tablet
10 mg PO HS
cyanocobalamin (vitamin B-12) 1,000 mcg Tablet
1,000 mcg PO DAILY
cholecalciferol (vitamin D3) [Vitamin D3] 25 mcg (1,000 unit) Tablet
25 mcg PO DAILY
PreserVision AREDS-2 250-90-40-1 mg Capsule
1 tab PO BID
metoprolol succinate 25 mg Tablet Extended Release 24 Hr
25 mg PO BID 30 Days Qty: 60 0RF
Eliquis 2.5 mg tablet
2.5 mg PO BID
Referrals:
Galilea Grant CRNP [Family Provider, Family Practice]
Activity Restrictions/Additional Instructions:
You were seen in the emergency department for an episode of low blood pressure
You were found to have normal blood pressure here, reassuring EKG and laboratory analysis. We recommend that you check your blood pressure before taking your metoprolol and consult with your food service director regarding continuation of this medication.
If systolic blood pressure is less than 100, do not take the metoprolol.
Please follow-up closely with your primary care physician.
Return to the emergency department for any worsening of your symptoms, or any development of chest pain, difficulty breathing, abdominal pain with persistent vomiting and inability to tolerate food or liquid by mouth (concern for dehydration),
weakness, headache or confusion, fever greater than 100.4, or any additional symptoms that are concerning to you.
Thank you for choosing [facility].
Interventions
Interventions:
*Risk Screen - Suicide Last Done: 12/23/24 13:30
*General Assessment Last Done: 12/23/24 13:30
*Neglect/Abuse Screening Last Done: 12/23/24 13:30
*ED- Fall Risk Assessment Last Done: 12/23/24 13:30
*ED COVID-19 Vaccine History Last Done: 12/23/24 13:30
*ED Influenza Vaccine History Last Done: 12/23/24 13:30
ED- Cardiac Assessment Last Done: 12/23/24 15:37
ED- Neurological Assessment Last Done: 12/23/24 15:37
ED- Pulmonary Assessment Last Done: 12/23/24 15:37
Discharge Date and Time
Print Language: CHINESE
== END 2024-12-23 18:07 | disposition home or self-care (01) ==
LOC: EMR 13:27
PROVIDERS: EMERGENCY PHYSICIAN Student in an Organized Health Care Education/Training Program; FAMILY PHYSICIAN Nurse Practitioner Family
DX: I95.9 Hypotension, unspecified (principal); I48.91 Unspecified atrial fibrillation; E78.00 Pure hypercholesterolemia, unspecified; I49.5 Sick sinus syndrome; Z95.0 Presence of cardiac pacemaker; Z79.01 Long term (current) use of anticoagulants
CPT/HCPCS: 99284; 80053; 85025; 93005